=== PATIENT | male | born 1985 | race Caucasian/White ===

== ENCOUNTER → 2018-05-14 09:03 | Outpatient (CLI) | payer OTHER, SELFPAY ==
[2018-05-14 09:46] LABS: Color, Urine Yellow (Yellow); Glucose, Dipstick Normal (Normal); Ketone-Dipstick Negative (Negative); Leukocyte Esterase-Dipstick Negative /ul (Negative); Nitrite-Dipstick Negative (Negative); Occult Blood-Urine Negative /ul (Negative); Protein-Dipstick Negative (Negative); Specific Gravity, Urine 1.015 (1.002-1.030); Urine Bilirubin Dipstick Negative (Negative); Urine Clarity Clear (Clear); Urine Urobilinogen Normal (Normal); Urine pH 6.5 (5.0 - 8.0)
[2018-05-14 09:52] LABS: Absolute Lymphocyte Count 1.41 X10^3/ul (0.83-4.51); Absolute Neutrophil Count 2.1 X10^3/uL (2.0-7.7); Basophil# 0.01 X10^3/uL; Basophil% 0.3 % (0-1); Eosinophil# 0.06 X10^3/uL; Eosinophils% 1.5 % (0-5); Hematocrit 45.8 % (40-54); Hemoglobin 15.5 g/dl (13.0-16.5); Lymphocyte # 1.41 X10^3/ul (4.0); Lymphocyte % 36.2 % (19-41); Mean Corp Hgb Conc 33.8 g/gl (32-36); Mean Corpuscular Hgb 29.5 pg (27.0-32.0); Mean Corpuscular Volume 87.1 fL (80-94); Mean Platelet Vol. 10.7 fl (6.2-12.0); Monocyte# 0.35 X10^3/uL; Neutrophil # 2.06 X10^3/uL (2.7-7.7); Neutrophil % 52.7 % (47-70); POSITIVE COUNT NO; POSITIVE DIFFERENTIAL NO; POSITIVE MORPHOLOGY NO; Platelet Count 156 K/mm3 (150-450); RBC Distribution Width CV 13.2 % (11.6-14.6); RBC Distribution Width SD 41.9 fl (35.1-43.9); Red Blood Count 5.26 M/mm3 (4.6-6.2); White Blood Count 3.9 K/mm3 (4.4-11.0)
[2018-05-14 10:20] LABS: BUN 16 mg/dL (7-18); Creatinine, Serum 0.84 mg/dL (0.70-1.30); Glucose 90 mg/dL (74-106)
[2018-05-14 10:21] LABS: ALB/GLOB Ratio 1.6 RATIO (0.9-2.4); AST(SGOT) 21 U/L (15-37); Alanine Aminotransfer ALT/SGPT 57 U/L (16-61); Albumin, Serum 4.3 g/dL (3.2-5.0); Alkaline Phosphatase 105 U/L (45-117); Anion Gap 5 (5-15); Calcium,Total 8.8 mg/dL (8.5-10.1); Chloride 107 mmol/L (98-107); Cholesterol 172 mg/dL (200); EST Glomerular Filtration Rate 113 mL/min (>60); Est Glom Filt Rate - Afr Amer 136 mL/min (>60); Globulin 2.7 g/dL (2.2-4.2); High Density Lipoprotein 47 mg/dL; Potassium 3.9 mmol/L (3.5-5.1); Sodium Level 139 mmol/L (136-145); Triglycerides 88 mg/dL; Very Low Density Lipoprotein 18 mg/dL (5-40)
--- OUTSIDE RECORDS SUMMARY | 2018-07-18 16:03 | XMS RPT_ITS ---
:1985 Author Organization OHIP Care Team Providers Name Role Phone CHRISTINA LOZADA Attending Unavailable CHRISTINA LOZADA Attending Unavailable CHRISTINA LOZADA Attending Unavailable Tommy John Attending Unavailable Tommy John Referring Unavailable Tommy John Primary Care Unavailable PROBLEMS PROBLEMS No Problem Records FoundPROCEDURES PROCEDURES No Procedure Records FoundRESULTS RESULTS URINALYSIS, ROUTINE Collected: 05/14/2018 Status: F Source: [place] ([place]) 9:[address] [facility] REPOSITORY Order Comment: How was Urine Obtained? CLEAN CATCH TYPE CODE TESTS RESULT OUT OF RANGE REFERENCE UNITS LAB L400.3000 Yellow COLOR Normal Yellow LAB L400.3050 Clear Normal CLARITY Clear LAB L400.3200 Normal mg/dl Normal GLUCOSE, UR Normal LAB L400.3300 Negative mg/dL Normal BILIRUBIN URINE Negative LAB L400.3400 Negative mg/dl Normal KETONE UR Negative LAB L400.3465 1.002-1.030 Normal SP.GR. DIPSTX 1.015 LAB L400.3550 5.0 - 8.0 pH UR Normal 6.5 LAB L400.3600 Negative mg/dl PROT Normal DIPSTX Negative LAB L400.3700 Normal mg/dl Normal UROBILI Normal LAB L400.3750 Negative Normal NITRITE UR Negative LAB L400.3780 Negative /ul Normal OCCULT BLOOD-UR Negative LAB L400.3800 Negative /ul LEUK Normal ESTERASE Negative Performed By: #### L400.2010 #### [facility] [address] [place], [address] CBC W/DIFF, AUTOMATED Collected: 05/14/2018 Status: F Source: [place] 9:[address] [facility] REPOSITORY TYPE CODE TESTS RESULT OUT OF RANGE REFERENCE UNITS LAB L100.1000 4.4-11.0 K/mm3 Low WBC 3.9 LAB L100.1200 4.6-6.2 M/mm3 Normal RBC 5.26 LAB L100.1300 13.0-16.5 g/dl Normal HGB 15.5 LAB L100.1400 40-54 % Normal HCT 45.8 LAB L100.1500 80-94 fL Normal MCV 87.1 LAB L100.1600 27.0-32.0 pg Normal MCH 29.5 LAB L100.1700 32-36 g/gl Normal MCHC 33.8 LAB L100.1810 11.6-14.6 % Normal RDW CV 13.2 LAB L100.1820 35.1-43.9 fl Normal RDW SD 41.9 LAB L100.1900 150-450 K/mm3 Normal PLT 156 LAB L100.2000 6.2-12.0 fl Normal MPV 10.7 LAB L100.2100 47-70 % Normal NEUT% 52.7 LAB L100.2200 19-41 % Normal LY% 36.2 LAB L100.2300 0-10 % Normal MONO% 9.0 LAB L100.2400 0-5 % Normal EO% 1.5 LAB L100.2500 0-1 % Normal BASO% 0.3 LAB L100.2550 0.0-0.9 % Normal IM GRAN % 0.300 Result Comment: IG% - Immature Granulocytes (promyelocytes, myelocytes and metamyelocytes) > 1% indicates that a LEFT SHIFT is Present. LAB L100.2620 2.0-7.7 X10 3/uL Normal Absolute Neut 2.1 LAB L100.2720 0.83-4.51 X10 3/ul Normal Absolute Lymph 1.41 Performed By: #### L100.0100 #### [facility] [address] [place], [address] COMPREHENSIVE METABOLIC Collected: 05/14/2018 Status: F Source: [place] [facility] 9:[address] [facility] REPOSITORY TYPE CODE TESTS RESULT OUT OF RANGE REFERENCE UNITS LAB L501.0100 74-106 mg/dL Normal GLU 90 Result Comment: Please note revised GLUCOSE reference range effective 2017. LAB L501.1000 7-18 mg/dL Normal BUN 16 LAB L501.1100 0.70-1.30 mg/dL Normal CREAT,SERUM 0.84 Result Comment: The validity of the calculated GFR AND GFRAA in patients over 70 years has not been determined. Clinical correlation is essential. LAB L501.1110 >60 mL/min Normal EST GFR 113 Result Comment: Non- GFR Calc LAB L501.1115 >60 mL/min Normal EST GFR - AA 136 Result Comment: GFR Calc LAB L501.1300 10-20 RATIO Normal BUN/CRE 19.0 LAB L501.1500 6.4-8.2 g/dL T Normal PROT 7.0 LAB L501.1800 3.2-5.0 g/dL Normal ALB 4.3 LAB L501.1950 2.2-4.2 g/dL Normal GLOB 2.7 LAB L501.2000 0.9-2.4 RATIO Normal A/G 1.6 LAB L501.2200 8.5-10.1 mg/dL CA Normal 8.8 LAB L501.4100 15-37 U/L Normal AST 21 LAB L501.4305 45-117 U/L Normal ALK P 105 LAB L501.4405 16-61 U/L Normal ALT 57 LAB L501.4600 0.20-1.00 mg/dL T Normal BILI 0.50 LAB L501.5300 136-145 mmol/L NA Normal 139 LAB L501.5600 3.5-5.1 mmol/L K Normal 3.9 LAB L501.5900 98-107 mmol/L CL Normal 107 LAB L501.6100 21.0-32.0 mmol/L Normal CO2 27.0 LAB L501.6200 5-15 Normal GAP 5 Performed By: #### L500.4050, L500.4100 #### [facility] [address] [place], [address] LIPID PROFILE Collected: 05/14/2018 Status: F Source: [place] 9:[address] [facility] REPOSITORY TYPE CODE TESTS RESULT OUT OF RANGE REFERENCE UNITS LAB L501.4900 200 mg/dL Normal CHOL 172 Result Comment: <200 mg/dL Desirable 200-240 mg/dL Borderline >240 mg/dL High Risk LAB L501.5000 mg/dL Normal TRIG 88 Result Comment: The drugs N-Acetylcysteine and Metamizole may falsely depress this assay. Serum Triglycerides Reference Interval Normal <150 mg/dL Borderline high 150 - 199 mg/dL High 200 - 499 mg/dL Very High > or = 500 mg/dL LAB L501.6400 mg/dL Normal HDL 47 Result Comment: The drugs N-Acetylcysteine and Metamizole may falsely depress this assay. Reference Range HDL <40 mg/dL Low HDL Cholesterol HDL >or= 60 mg/dL High HDL Cholesterol LAB L501.6500 0-130 mg/dL Normal LDL 107 LAB L501.6600 5-40 mg/dL Normal VLDL 18 Performed By: #### L500.4050, L500.4100 #### [facility] [address] [place], [address] PHENYTOIN (DILANTIN) Collected: 05/14/2018 Status: F Source: [facility] 9:[address] [facility] REPOSITORY Order Comment: Time Medication is to be Given? 0800 TYPE CODE TESTS RESULT OUT OF REFERENCE UNITS RANGE LAB L501.7700 10.0-20.0 mL High alert PHENYTOIN 36.0 Result Comment: Critical Result(s) Called to TBee at: 10:25:59 05/14/2018 by: CCrytzer Phenytoin concentrations greater than 30.0 ug/mL are potentially toxic. Performed By: #### L501.7700 #### [facility] [address] [place], [address] PROGRESS Observed: 08/19/2017 Status: COMPLETED Source: [place] 12:17 PM [facility] REPOSITORY HNO ID: [id number] Author: Christina Lozada Service: (none) Author Type: Psychologist Type: Progress Notes Filed: 08/19/2017 12:26 PM Note Text: [facility] Progress Note Ileana Hernandez 08/19/2017 [id number] Provider: Christina Lozada, PHD CPT Code: 66551 Psychotherapy 38-52 minutes Time: Approximately 50 minutes was spent in therapy. Parties Present: Patient Patient Presentation/Concerns: Pt getting in a few months.... discussed the 20K as difficult but ok Pt working on challenging his typical response of Withdrawing vs having a voice HX: grandfather would ask him to do things but might get frustrated and just do it himself.. OUTCOME: pt learned to w/draw vs feel bad about himself concerns his son with autism will have a good life PLAN: live well now and see that his work matches son's interests and skills fiafshin tends to be easily agitated .. PLAN: wonder about OTC to help Mental Status: Mood: variable Affect: mood-congruent Thoughts/Associations:goal directed Suicidal/Homicidal Ideation: None expressed or evidenced Other Observations: None Therapy Focus Self-care, Stress management, Mood/affect regulation, Interpersonal, Family relationships, Marital/couple, Parenting and Self-esteem MEDICATIONS: Per medical record: No current outpatient prescriptions on file. No current facility-administered medications for this visit. Psychiatric Medication Issues: Dilantin for prophylactic for myoclonic seizures seems best DIAGNOSIS: Crane I: Adjustment Disorder, mixed Relationship Problem Myoclonic Seizures ?? Crane II: deferred Crane III: see med record Crane IV: ?struggle w having a voice and intimacy Crane V: ?53 Treatment Modality/Interventions: Cognitive Behavioral Reassurance/Supportive Insight oriented Problem solving TREATMENT ASSESSMENT/PROGRESS: . Progressing satisfactorily. TREATMENT PLAN/GOALS: Continue in therapy focusing on self-care, assertiveness skills and self-esteem. Next appointment: as scheduled Christina Lozada PHD PROGRESS Observed: 08/05/2017 Status: COMPLETED Source: [place] 12:00 PM [facility] REPOSITORY O ID: [id number] Author: Christina Lozada Service: (none) Author Type: Psychologist Type: Progress Notes Filed: 08/05/2017 12:07 PM Note Text: [facility] Progress Note Ileana Dubois David 08/05/2017 [id number] Provider: Christina Lozada, PHD CPT Code: 74756 Psychotherapy 38-52 minutes Time: Approximately 50 minutes was spent in therapy. Parties Present: Patient Patient Presentation/Concerns: Pt does ok w danica daughter and more difficult but ok w his autistic son and at work ... particularly helping and teaching... his job at work is it trainer / teacher at [employer] discussed his fear of conflict: doesnt want to feel diminished PLAN: worked on I-Messages... and 'i wonder what i say or do that leads you to feel diminished..' to fiance and notice no 'ill intent' on his part in spite of that view from others and Primacy Worked also on 'protective emotional shell' Mental Status: Mood: variable Affect: mood-congruent Thoughts/Associations:goal directed Suicidal/Homicidal Ideation: None expressed or evidenced Other Observations: None Therapy Focus Self-care, Mood/affect regulation, Interpersonal, Marital/couple, Parenting and Self-esteem MEDICATIONS: Per medical record: No current outpatient prescriptions on file. No current facility-administered medications for this visit. Psychiatric Medication Issues: No change from previous appointment DIAGNOSIS: Crane I: Adjustment Disorder, mixed Relationship Problem ? Crane II: deferred Crane III: see med record Crane IV: struggle w having a voice and intimacy Crane V: 53 Treatment Modality/Interventions: Cognitive Behavioral Reassurance/Supportive Insight oriented Problem solving Communication skills training TREATMENT ASSESSMENT/PROGRESS: . Progressing satisfactorily. TREATMENT PLAN/GOALS: Continue in therapy focusing on self-care, interpersonal relationships, improving communication, assertiveness skills and affect management. Next appointment: as scheduled Christina Lozada PHD PROGRESS Observed: 07/13/2017 Status: COMPLETED Source: [place] 5:29 PM [facility] [place] REPOSITORY [facility] ID: [id number] Author: Christina Lozada Service: (none) Author Type: Psychologist Type: Progress Notes Filed: 07/13/2017 5:52 PM Note Text: [facility] Progress Note Ileana Dubois David 07/13/2017 [id number] Provider: Christina Lozada PHD CPT Code: 57164 Psychiatric diagnostic evaluation Time: Approximately 50 minutes was spent in therapy. Parties Present: Patient Patient Presentation/Concerns: INITIAL VISIT Born in [place] and raised by grandmother and step grandfather.... very close to grandmother... bio father joined them when pt was 16 but wanted to direct him w/o earning the right father was druggy and mom in and out of intermediate Pt went to [place] but drank daily so returned He has an autistic son residing w the boys mom and now 7 yo... he has him about every other wknd Pt lives w Malgorzata and her 8 yo daughter, a nurse, and they plan to in December... pt was dx as ADHD as child and now on Strattera which seems to be helping Issue; he has difficulty initiating personal conversations since he fears being demeaned or not listened to PLAN: worked on Dialogue vs Monologue technique and from Content thru intimate conversation to Getting how the other could think that way as content becomes less important Goal: learn how to have a voice ... and find a way to have son reside w him if he can Mental Status: Mood: variable, anxious Affect: mood-congruent Thoughts/Associations:goal directed Suicidal/Homicidal Ideation: None expressed or evidenced Other Observations: None Therapy Focus Self-care, Stress management, Mood/affect regulation, Marital/couple, Parenting and Self-esteem MEDICATIONS: Per medical record: No current outpatient prescriptions on file. No current facility-administered medications for this visit. Psychiatric Medication Issues: see med record DIAGNOSIS: Crane I: Adjustment Disorder, mixed Relationship Problem Crane II: deferred Crane III: see med record Crane IV: struggle w having a voice and intimacy Crane V: 53 Treatment Modality/Interventions: Cognitive Behavioral Reassurance/Supportive Problem solving Communication skills training TREATMENT ASSESSMENT/PROGRESS: . Fluctuating progress. TREATMENT PLAN/GOALS: Continue in therapy focusing on interpersonal relationships, improving communication, affect management and self-esteem. Next appointment: as scheduled Christina Lozada, PHD ALLERGIES ALLERGIES DATE TYPE / CODE NAME / CODE REACTION SEVERITY SOURCE 02/19/2005 DRUG BANANA [facility] INGREDI/[id number]( [place] [facility]) Repository 02/19/2005 DRUG BUTTER [facility] INGREDI/[id number](S FLAVOR [facility] [place] [facility]) Repository 02/19/2005 Miscellaneous OTHER [facility] Allergy/[id number]( [place] [facility]) Repository 02/19/2005 DRUG EGG [facility] INGREDI/[id number](S [facility] [place] [facility]) Repository 02/19/2005 Environ/[id number](S LATEX [facility] NOMED CT) [place] Repository 02/19/2005 DRUG NICKEL [facility] INGREDI/[id number]( [place] [facility]) Repository ENCOUNTERS ENCOUNTERS ADMIT/DISCHARGE ACCOUNT ADMITTING ENCOUNTER LOCATION SOURCE NUMBER CLASS 05/14/2018 [id number] Ambulatory [facility] ing:LAB Repository 08/19/2017/08/21/19 [id number] Ambulatory [address] Repository 08/05/2017/08/07/19 [id number] Ambulatory [address] Repository 07/13/2017/07/15/19 [id number] Ambulatory [address] Repository PAYERS PAYERS ENCOUNTER GUARANTOR PAYER SUBSCRIBER SOURCE 05/14/2018 ILEANA Dubois Primary ILEANA Pride Insurance:MEDICAL BRENNERDOB: [facility] [id number] Number: Repository [id number]: [phone] [id number] [phone] () Date:[id number] [address] [address]EE: 05/14/2018 Secondary NOT GIVENMARGUERITE Rod Insurance:SELF PAY [facility] Number: Effective Repository Date:2018-05-14
== END ==
PROVIDERS: Family Provider Family Medicine; PCP Family Medicine; Referring Provider Family Medicine; Visit Provider Family Medicine
DX: Z00.00 Encounter for general adult medical examination without abnormal findings (principal); Z51.81 Encounter for therapeutic drug level monitoring
CPT/HCPCS: 36415; 80053; 80061; 80185; 81002; 85025

== ENCOUNTER → 2020-12-15 08:49 | Outpatient (CLI) | payer MEDICAID, SELFPAY ==
[2020-12-15 10:05] LABS: Phenytoin (Dilantin) Level 13.3 mL (10.0-20.0)
== END ==
PROVIDERS: PCP Family Medicine; Visit Provider Family Medicine
DX: Z51.81 Encounter for therapeutic drug level monitoring (principal)
CPT/HCPCS: 36415; 80185

== ENCOUNTER 2021-01-26 18:56 | Emergency (ER) | payer MEDICAID, SELFPAY ==
[2021-01-26 18:57] VITALS: BP 188/128; PULSE 101; RESP 16; TEMP 35.8; O2SAT 98; BMI 29.0
--- NOTE | 2021-01-26 20:00 | EDS_ITS ---
HPI HPI - Psych History of Present Illness Chief Complaint: Mental Health Detail of Chief Complaint: I am going through a manic episode Informant: patient Onset/Context/Timing Onset: Weeks Conflict: Family, Work and Financial Timing: Continuous and Waxes and wanes Current Severity: Moderate Maximum Severity: Severe Worsened by: Situational factors Relieved by: Nothing Associated Symptoms Associated Symptoms - Psych: Positive for Depressed, Change in Eating, Change in sleeping, Decreased Interest and Decreased Concentration; Negative for Guilt, Hopelessness, Suicidal Thoughts, Easily distracted, Grandiosity, Flight of Ideas, Increased activity, Pressured Speech, Agitated, Angry, Hostile, Threatening, Confusion, Paranoia, Visual Hallucinations and Auditory Hallucinations Specific plan (suicidal thought): None Narrative Narrative: Patient has history of bipolar affective disorder. He is present Paxil. He has a scheduled appointment at the crisis center for February 06. He states there are problems with his marriage. He would never harm himself since he has 2 preteen's an 98-xrils-dns. He is employed and does have insurance. He denies drug use. He does admit to smoking. There is been no reckless behavior. There is been no frivolous pending. There is no sense of grandiosity or of being omnipotence. Patient has symptoms of depression and sadness. He states things are falling apart around him. He is concerned his is going to leave him. Prior similar symptoms: Yes Recent Illness/Hospitalization: No (Last hospitalization was 10 years ago) [facility] Medical History Bipolar disorder Epilepsy Narcolepsy Home Medications armodafinil [Nuvigil] 250 mg PO DAILY 01/26/21 [History Last Taken 01/26/21] atomoxetine [Strattera] 80 mg PO DAILY 01/26/21 [History Last Taken 01/26/21] escitalopram oxalate [Lexapro] 10 mg PO DAILY #30 tab 01/26/21 [Rx Last Taken Unknown] multivitamin 1 tab PO DAILY 01/26/21 [History Last Taken 01/26/21] nicotine 1 patch TRANSDERMAL Q24H #28 ea 01/26/21 [Rx Last Taken Unknown] paroxetine HCl 30 mg PO DAILY 01/26/21 [History Last Taken 01/26/21] phenytoin sodium extended [Dilantin Extended] 100 mg PO TID 01/26/21 [History Last Taken 01/26/21 08:00] Allergy/AdvReac Type Severity Reaction Status Date / Time No Known Allergies Allergy Verified 01/26/21 19:00 Surgical History Hx of tonsillectomy Social History (Updated 01/26/21 @ 20:[address] Oswaldo Stevens MD) household members: spouse and children Smoking Status: Current every day smoker tobacco type: cigarettes alcohol intake: current alcohol intake frequency: other substance use type: does not use ROS ROS ED Constitutional Constitutional ED: Denies chills, fever(s), subjective or sweats Eyes Eyes: Denies blurry vision or change in vision ENT ENT ED: Denies ear pain, rhinorrhea or sore throat Cardiovascular Cardiovascular: Denies chest pain or palpitations Respiratory/Chest Respiratory/Chest: Denies cough, dyspnea or dyspnea on exertion Gastrointestinal Gastrointestinal: Denies abdominal pain, constipation, diarrhea, nausea or vomiting Musculoskeletal Musculoskeletal: Denies arthralgias, back pain, myalgias or neck pain Integumentary Denies Abrasions or rash Neurologic Neurologic: Denies paresthesias or weakness Psychiatric Psychiatric: Reports anxiety and depression; Denies suicidal ideation or suicid al thoughts Hematologic/Lymphatic Hematologic/Lymphatic: Denies easy bleeding or easy bruising EXAM Physical Exam Const Vital Signs: 01/26/21 18:57 Temperature 96.5 F L Temperature Source Temporal Pulse Rate 101 H Respiratory Rate 16 Blood Pressure 188/128 H Blood Pressure Mean 148 Pulse Ox 98 Oxygen Delivery Method Room Air Positive well nourished and well developed General Appearance ED: well developed and NAD; Negative for pallor HEENT normocephalic and atraumatic Eyes PERRL and EOMs intact bilaterally General Eye ED: Negative for pale conjunctiva or scleral icterus Neck no lymphadenopathy, supple and no JVD Resp normal respiratory effort and clear to auscultation bilaterally Cardio S1 normal heart sound, S2 normal heart sound and no murmurs Rate: regular rate Rhythm: regular rhythm Back/Spine no CVA tenderness Extremity normal to inspection General Extremety ED: Negative for edema or tenderness General Extremity: Negative for edema Neuro oriented x3, CN's II-XII intact bilaterally and no sensory deficits noted Sensorium / Orientation: alert Psych mental status grossly normal and thought process normal Appearance: grossly normal and appropriate Activity / Motor Behavior: appropriate eye contact Mood & Affect: depressed Attention / Concentration: attention grossly intact and concentration grossly intact Memory / Cognition: memory grossly intact Insight: fair Judgement: fair Skin General Skin Exam: Negative for jaundice or pallor Lesions: no lesions Rashes: no rashes MDM MDM MDM Narrative Medical decision making narrative: Patient's symptoms are consistent with depression. Spoke with case management to expedite outpatient appointment and will prescribe antidepressant. Case management did speak with him. Plan is prescription for nicotine patch, Lexapro and emergent intensive outpatient therapy Discharge Plan Triage Chief Complaint: Mental Health ED Provider: Oswaldo Stevens Dx/Rx/DC Orders Clinical Impression: Depression Instructions: ED Depression Prescriptions: New nicotine 21 mg/24 hr patch 24 hour 1 patch transdermal Q24H Qty: 28 RF: 0 escitalopram oxalate [Lexapro] 10 mg tablet 10 mg PO DAILY Qty: 30 RF: 0 No Action multivitamin Tablet 1 tab PO DAILY RF: 0 phenytoin sodium extended [Dilantin Extended] 100 mg Capsule 100 mg PO TID RF: 0 paroxetine HCl 30 mg tablet 30 mg PO DAILY RF: 0 atomoxetine [Strattera] 80 mg Capsule 80 mg PO DAILY RF: 0 armodafinil [Nuvigil] 50 mg tablet 250 mg PO DAILY RF: 0 Primary Care Provider: Tommy John Referrals: Tommy John MD [Primary Care Provider] - As Needed Disposition Disposition: Home, Self Care
[2021-01-26 21:13] VITALS: BP 177/102; PULSE 92; RESP 15; O2SAT 98
--- NOTE | 2021-01-26 21:18 | CM.ED ---
Addendum entered by Lise Reilly 01/26/21 21:44: MARCIA sent referral to [facility] IOP/PHP Lincoln Reilly Original Note: MARCIA Note Referral Source: MD Referral Reason: MD requested earlier appointment than patient's scheduled [facility] and to see what Meds patient had been on in the past that worked so he can resume meds. SW spoke to Reina from Crisis and she confirmed patient had appointment on 02/06 with Arbil, a therapist, and she can not change that appointment. She indicated patient may benefit from [facility] IOP/PHP. Chief Complaint: Patient said that he feels I am in a extended manic episode.. I make crappy decision and I can't understand why I do it... my behavior is not acceptable with a 11 month old, 10 year old and 11 year. SW asked what patient meant by crappy decisions and he said there is Adderall in the cupboard that was prescribed but hasn't been used and I went through a couple 1,000 mg in a couple of months. Patient said that he has not used adderal in 1 1/2- 2 weeks. Patient said that he also had been taking Ritalin, which was prescribed to him. Patient reports he has some degree of hypersexuality but never found a partner I just kept it to myself. Patient said when my and I fight the most absurd statements come out of my mouth. Marital/Social Status: . Patient and his have 11 month old together, patient's son age 10 and his 's daughter age 11. Living Situation: Patient resides in a house with his and 3 children. Patient has custody of his son. Support/Resource: Patient was asked about his support and he said Madi Lozada and Humza Corley. SW asked patient about drinking and he said not often. Patient said that he was taking pills and going through pills. History: None. Patient reports history of epilepsy Education and Employment: Patient graduated from [employer]. He reports having an IEP related to his ADHD. Patient is not employed. Patient said that he took Seroquel in the past and I slept for 13 hours and then I got up and had a bad seizures. Patient reports he could not recall the names of the other medications he was on in the past. Patient said that he is currently on Paxil as he wanted to quit smoking but does not think it is helpful. Mental Health Treatment: Patient reports he has a [facility]. Patient said that he was last psychiatrically hospitalized 10 years ago and at an unknown facility. Patient said I used to be a cutter but denied current cutting. Patient reports... my goal.. I don't know.. I don't want to lose my and kids. Patient said that previously he has been diagnosed with bipolar but his suspects he has ASD (Autism Spectrum Disorder) as his son and other family members have it. 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 Last use 2 weeks ago. Risk to Self and Others SI: Patient reports no current SI. Patients past SI but I don't want to do anything to lose or be away from my kids and showed this law writer a picture of his daughter. Patient said that on a scale of 1-10 with 1 being low and 10 being high his intent is a 1. Patient denied current plan. Patient said that he attempted to hang himself approximately 15 years ago. Homicidal: Patient said not really and when this law writer asked about his response he said there I times I get really upset and have to separate myself.. but all I want to do is Bitch Slap. Violence: Patient denies cutting or self abusive behavior. Patient denies violence to objects or others. SW asked what patient's goal is today and he said I want help and when asked what help he feels he needs he said I would like a psychologist and I do need Meds. Patient said I don't know what the root problem is ... so it is hard to have a goal. SW asked patient to complete a safety plan and that law writer would follow up with him on Thursday. SW gave him the safety plan to complete and said law writer would be back shortly. However, when SW went back to get safety plan he had been discharged and left. However, when completing safety plan patient denied weapons such as guns in the house. sW told patient that if he is in crisis he can call [facility]. Patient said that he has the number for crisis as they have had to use it for my son. SW asked patient if he felt he would be safe being discharge and he said yeah I will be fine. SW spoke to both RN and MD and they stated patient denied any current SI, which is consistent with this writers interview. Mental Status Exam: Orientation: x4 Memory: Good Appearance: Clean/appropriate Mood/Affect: Depressed mood and affect Communication Patterns: Responds to Questions Thought Process: Appropriate. No evidence of AH/VH General Intellectual Functioning: Average Judgement: Fair Insight:Good SW reviewed with patient the [facility] IOP/PHP. SW explained the program including groups, individual counseling and med management. Patient said I will do anything. SW explained the time commitment and that it involves groups and patient said I will do anything. Patient denied current SI/HI and denied any intent to harm self. Patient showed this law writer picture of his daughter and said that he doesn't want to do anything to lose or be away from her. SW gave patient a handout on [facility] IOP/PHP. SW had patient complete a safety plan and SW will follow up with patient on Thursday. SW encouraged patient to take prescribed Meds and that they do not have optimum effectiveness till 21 days. Patient was advised to not take any more Adderall. Patient verbalized understanding. Plan: Patient completed safety plan however he left without this law writer getting it. SW will call patient on Thursday. SW will refer patient to IOP/PHP at [facility]. Lise HANSEN
--- NOTE | 2021-01-26 22:39 | CM.ED ---
SW spoke to RN caring for the patient. She said that while she was in another patient's room the patient was discharged by another nurse. RN, caring for the patient, did not discharge patient as another RN discharged him. Plan: Home with safety plan and follow up with [facility] Lise HANSEN
--- NOTE | 2021-01-28 11:09 | CM.ED ---
SW Note MARCIA left voice mail message for patient advising that [facility] IOP/PHP will reach out to him today. MARCIA requested a call back. Plan: IOP/PHP Lise HANSEN
--- NOTE | 2021-01-28 21:19 | CM.ED ---
MARCIA followed up with phone call to patient's voice mail at 4:23pm on this date. SW left voice mail with call back. Lise HANSEN
== END 2021-01-26 21:37 | disposition home or self-care (01) ==
PROVIDERS: Emergency Provider Emergency Medicine; PCP Family Medicine
DX: F32.9 Major depressive disorder, single episode, unspecified (principal); F17.210 Nicotine dependence, cigarettes, uncomplicated; G40.909 Epilepsy, unspecified, not intractable, without status epilepticus; G47.419 Narcolepsy without cataplexy
CPT/HCPCS: 99282

== ENCOUNTER 2021-02-24 20:41 | Emergency (ER) | payer MEDICAID, SELFPAY ==
[2021-02-24 20:43] VITALS: BP 159/99; PULSE 101; RESP 16; TEMP 36.4; O2SAT 98; BMI 29.7
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
[2021-02-24 21:23] LABS: Amphetamine Urine VISTA NEGATIVE (<1000 ng/mL); Barbiturate Urine VISTA NEGATIVE (< 200 ng/mL); Benzodiazepine Urine VISTA NEGATIVE (< 200 ng/mL); Cocaine Urine VISTA NEGATIVE (< 300 ng/mL); Ecstacy Urine VISTA NEGATIVE (< 500 ng/mL); Methadone Urine VISTA NEGATIVE (< 300 ng/mL); PCP Urine VISTA NEGATIVE (< 25 ng/mL); THC Urine VISTA NEGATIVE (< 50 ng/mL); Vista UDS pH Range 6
[2021-02-24 21:56] LABS: Absolute Lymphocyte Count 2.39 X10^3/uL (0.83-4.51); Absolute Neutrophil Count 3.4 X10^3/uL (2.0-7.7); Basophil# 0.03 X10^3/uL; Basophil% 0.5 % (0-1); Eosinophil# 0.15 X10^3/uL; Eosinophils% 2.3 % (0-5); Hematocrit 46.3 % (40-54); Hemoglobin 16.2 g/dL (13.0-16.5); Lymphocyte # 2.39 X10^3/ul (0.83-4.51); Lymphocyte % 37.1 % (19-41); Mean Corpuscular Hgb 30.3 pg (27.0-32.0); Mean Corpuscular Volume 86.5 fL (80-94); Mean Platelet Vol. 10.4 fl (6.2-12.0); Monocyte# 0.44 X10^3/uL; Monocyte% 6.8 % (0-10); NRBC Flagged by Analyzer 0 % (0-5); Neutrophil # 3.42 X10^3/uL (2.7-7.7); Platelet Count 191 K/mm3 (150-450); RBC Distribution Width CV 13.1 % (11.6-14.6); RBC Distribution Width SD 40.6 fl (35.1-43.9); Red Blood Count 5.35 M/mm3 (4.6-6.2); White Blood Count 6.5 K/mm3 (4.4-11.0)
[2021-02-24 22:03] VITALS: RESP 17
[2021-02-24 22:14] LABS: Anion Gap 7 (5-15); BUN 14 mg/dL (7-18); BUN/Creat Ratio 14.7 RATIO (10-20); Calcium,Total 9.3 mg/dL (8.5-10.1); Chloride 106 mmol/L (98-107); Creatinine, Serum 0.95 mg/dL (0.70-1.30); EST Glomerular Filtration Rate 96 mL/min (>60); Est Glom Filt Rate - Afr Amer 116 mL/min (>60); Estimated Creatinine Clearance 123.82 ml/min; Glucose 100 mg/dL (74-106); Potassium 3.5 mmol/L (3.5-5.1); Sodium Level 140 mmol/L (136-145)
[2021-02-24 22:31] LABS: Phenytoin (Dilantin) Level 1.8 mL (10.0-20.0)
--- NOTE | 2021-02-24 22:35 | NURSING ---
CALLED CRISIS AT [id number]
[2021-02-25 00:31] VITALS: BP 137/93; PULSE 79; RESP 18; O2SAT 97
[2021-02-25 02:22] VITALS: RESP 16
--- NOTE | 2021-02-25 03:10 | NURSING ---
pt given belongings back. 2 plastic hospital bags and a duffle bag that was brought in by the patients. sitter at bedside.
== END 2021-02-25 04:17 | disposition home or self-care (01) ==
PROVIDERS: Student in an Organized Health Care Education/Training Program; Emergency Provider Emergency Medicine; PCP Family Medicine
DX: R45.851 Suicidal ideations (principal); F17.210 Nicotine dependence, cigarettes, uncomplicated; G47.419 Narcolepsy without cataplexy; G40.909 Epilepsy, unspecified, not intractable, without status epilepticus; F31.9 Bipolar disorder, unspecified
CPT/HCPCS: 80048; 80185; 80307; 82077; 85025; 87426; 99285

== ENCOUNTER 2021-03-05 09:36 | Outpatient (RCR) | payer MEDICAID, SELFPAY ==
--- NOTE | 2021-03-05 09:04 | BH.SGPN.GN ---
Behaviors/Verbalizations/Mental Status: []Client alert and oriented, casually dressed and groomed. Eye contact fair to good. Motor activity appropriate. Speech within normal limits. Affect congruent, mood depressed and anxious. Thoughts linear, logical, no signs of hallucinations or delusions. Reviewed client?s symptom tracker, no risk for suicidal ideation, plan, or intent as of 03/05/21. Client Response/Progress/Benefit: []Client first day in IOP tx. He did well to remain attentive and was willing to process with group. Client reports feeling ?I am the personification of a hot mess. Went on to discuss several psychosocial stressors and unhealthy decisions making which resulted in seeking IOP tx. Discussed struggling with sobriety, depression, and impulsivity. Shared beginning to recognize he had been blaming others for his problems and avoided taking personal responsibility but would like to start doing so now. Shared wanting to set a good example for his children and make strides in improving his marriage as well. Client appeared to benefit from supportive group environment. Will continue IOP tx to improve mood stability, develop healthy means of coping, and prevent decompensation. Narrative Note: []
--- NOTE | 2021-03-05 09:40 | BH.COMM ---
Communication Note - Communication with Client Communication Note: Met with pt to completed initial paperwork. Since pre-admission screening he presented to the [facility] ER on 02/24/21 for SI with thoughts of methods. Assessed by crisis and discharged. [facility] is [facility] with [facility]. Sober from Meth for several weeks and continues to report erratic mood and fleeting SI. He disclosed a hx of 10 previous suicide attempts during [facility] however reports the most of those were due to self-injurious behaviors and not suicidal. He is a poor historian and has difficulty parceling though these events. Last suicide attempt was in 2010. Does not present as imminent danger to himself. Motivated. Protective factors. Future-oriented. Talked at length regarding employment opportunities.
--- NOTE | 2021-03-05 10:12 | BH.SGPN.GN ---
Behaviors/Verbalizations/Mental Status: []Client alert and oriented, casually dressed and groomed. Eye contact good. Motor activity appropriate. Speech within normal limits. Affect congruent, mood depressed. Thoughts linear, logical, no signs of hallucinations or delusions. Client Response/Progress/Benefit: []Pt was an active participant in group discussion and activity. Attentive during psychoeducation on coping skills. Pt along with peers worked together to identify unhealthy coping skills such as; avoidance, substance use, and trying to take care of issues alone. Group was able to identify why people use unhealthy coping skills such as; easy, comfortable, work in the short-term, habit, or it?s what they were taught/learned from others. Pt noted he struggles with implementing healthy coping skills, even though he knows what he should do. Pt also noted he wants to use healthier coping skills to be a role model for his children. Benefited from increased understanding of unhealthy coping skills and the need for developing healthy internal coping skills to manage mental health sx. Pt will continue in IOP to prevent decompensation, gain healthy coping skills, and improve functioning. Narrative Note: []
--- NOTE | 2021-03-05 11:12 | BH.SGPN.GN ---
]Behaviors/Verbalizations/Mental Status: []Client alert and oriented, casual dress, hygiene tended to. Eye contact good. Motor activity appropriate. Speech within normal limits. Affect congruent, mood anxious. Thoughts linear, logical, no signs of hallucinations or delusions. Client Response/Progress/Benefit: []Client responded well to session, actively listening and providing examples. Client stated he doesn't have any healthy coping skills. Client reported he needs to gain both healthy internal and external skills. Group discussed the different categories of coping skills which included distraction, emotional release, grounding, self-love, and thought challenging. Client participated in creating a coping skills ?menu? from the five categories of coping skills. Client's coping skill menu included: exercise, writing, body scan, decrease caffeine intake and positive affirmations. Pt's first day in IOP. Appeared to benefit from increasing repertoire of healthy coping skills. Will continue tx to increase healthy coping, improve daily functioning and prevent decompensation. Narrative Note: []
--- NOTE | 2021-03-06 09:04 | BH.SGPN.GN ---
Behaviors/Verbalizations/Mental Status: []Client alert and oriented, casually dressed and groomed. Eye contact good. Motor activity appropriate. Speech within normal limits. Affect congruent, mood depressed, agitated. Thoughts linear, logical, no signs of hallucinations or delusions. Reviewed client?s symptom tracker, no risk for suicidal ideation, plan, or intent as of 03/06/21 Client Response/Progress/Benefit: []Client receptive to session, attentive though a mostly passive participant throughout. Client reports feeling ?angry this morning. Attributes this to the current tension in his marriage and feeling like his is not acknowledging the areas he has made progress since seeking mental health help. Expressed feeling that he is disconnected from his family and struggles to enjoy time he spends with them. Receptive of supportive feedback and validation provided by the group. Did identify some positives which included having a ?project? to keep himself busy, describing that he has been renovating an old camper. Additionally, identified seeking mental health treatment as an area of progress. Does appear to struggle with external locus of control, which he has admitted to in prior process group. Recommended continued IOP tx to further promote healthy coping and sobriety, further improve mood stability and anger management, as well as prevent decompensation. Narrative Note: []
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
--- NOTE | 2021-03-06 11:12 | BH.SGPN.GN ---
Behaviors/Verbalizations/Mental Status: []Client alert and oriented, casually dressed and groomed. Eye contact good. Motor activity appropriate. Speech within normal limits. Affect congruent, mood euthymic. Thoughts linear, logical, no signs of hallucinations or delusions. Client Response/Progress/Benefit: []Client responded well to session AEB completing the resilience worksheet provided. Client participated in the discussion of how each resiliency component can help increase personal resiliency and worked cooperatively with group to identify strategies to enhance each of the components discussed. Client reported he feels he is doing well with all the resilience traits. Client stated he has a positive view of self and wonders ?what is the line between narcissistic and confident? as client feels he can be too confident about his appearance. Client seemed to benefit from discussing strategies for improving personal resilience and identifying resilience traits client already possesses. First week of IOP tx. Will continue IOP tx to prevent decompensation, learn healthy coping skills, and increase impulse control. Narrative Note: []
[2021-03-06 11:45] VITALS: BP 151/95; PULSE 86
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
--- NOTE | 2021-03-06 13:03 | BH.DR.ITP ---
Initial Treatment Plan Patient Information Visit Information: ADMISSION DATE: EXPECTED LOS: 4-6 weeks Problems/Symptoms Problem #1:: Depression Symptom:: Sadness, hopelessness, low motivation, worthlessness, guilt, passive thoughts of , recent suicidal ideation Problem #2:: Anxiety Symptom:: Worry, rumination, panic attacks
--- NOTE | 2021-03-07 14:24 | BH.DS_ITS ---
Discharge Summary - Demographics Date of Admission:: 03/05/21 Discharge Date: 03/07/21 Presenting Problems at Admission:: Pt with hx of ADHD, substance abuse issues and possible bipolar disorder. Referred by [facility] ER where he had been seen twice for suicidal thoughts and drug usein month of January 2021. Identified stressors were marital conflict and stress from 10 year old autistic son?s behavior issues. Patient has a history of depression and substance abuse in recent months. On January 26, 2021 the patient was seen in the emergency room after using Adderall and methamphetamine and presented with manic and some depressive symptoms and was referred to substance IOP. Patient says at the time he was abusing Adderall and methamphetamine for several months. The methamphetamine what he says was only small amounts about 3 times a week. He has not used methamphetamine, Adderall or cocaine since about mid January. The patient is currently not working because he quit his job in September 2020. He endorsed feeling very down, hopelessness, anhedonia, low motivation, worthlessness and passive thoughts of . He had panic attacks 2-3 times a week. Discharge Diagnoses:: 1. Major depressive disorder, recurrent, severe without psychosis F33.2. 2. Rule out bipolar, NOS. 3. Anxiety disorder, NOS. 4. Adderall, methamphetamine, caffeine and cocaine use disorders. 5. Primary support, work and financial issues Reason for Discharge:: Pt was admitted to inpatient psychiatric [facility] for suicidal threats. - Treatment Progress During Treatment & Response: Pt only attended IOP for 2 days, no progress observed. When pt did attend those 2 days he was attentive and engaged in group therapy sessions. Issues Still to be Addressed:: Pt could benefit from learning emotion regulation skills, healthy coping skills, challenge distorted thoughts, crisis management and continued work to help pt maintain sobriety. Discharge Recommendations/Instructions:: Pt recommended to follow through with recommendations provided by [facility] at discharge. Discharge Handout: Complete Discharge Handout with client on aftercare options and continuity of care.
== END 2021-03-07 23:19 ==
LOC: BHIOP 09:36
PROVIDERS: PCP Family Medicine; Referring Provider Psychiatry & Neurology Psychiatry; Visit Provider Psychiatry & Neurology Psychiatry
DX: F33.2 Major depressive disorder, recurrent severe without psychotic features (principal); F41.9 Anxiety disorder, unspecified; F15.90 Other stimulant use, unspecified, uncomplicated; F11.90 Opioid use, unspecified, uncomplicated; F14.90 Cocaine use, unspecified, uncomplicated; Z79.899 Other long term (current) drug therapy; F90.9 Attention-deficit hyperactivity disorder, unspecified type; G40.409 Other generalized epilepsy and epileptic syndromes, not intractable, without status epilepticus
CPT/HCPCS: 90792; H2012; H2020; T1002

== ENCOUNTER 2021-03-06 23:46 | Emergency (ER) | payer MEDICAID, SELFPAY ==
[2021-03-06 23:47] VITALS: BP 158/103; PULSE 78; RESP 18; TEMP 36.5; O2SAT 99; BMI 29.0
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
--- NOTE | 2021-03-07 00:17 | EDS_ITS ---
HPI History of Present Illness Chief Complaint: Suicidal Informant: patient and other (pink sheet) Narrative Narrative: Patient states that he got into a fight with his shonna. She had said she would be better off if he killed himself. He stated something like he would just go and do that. He did not elaborate anything more than that. He states he was never thinking of hurting himself and would not do that. However, I then read the pink sheet by the deputy. Evidently he had threatened this as he stated. But he also had a gun with him in his truck. He was threatening to shoot himself. When the police approached, the patient fled. He was later apprehended. This is a little bit more detail and risk then he initially shared with me. Patient is in intensive outpatient psychiatry and has another appointment with counseling that starts early March. He just started IOP on Thursday with 3 hours of counseling and had 3 hours earlier today also. He is taking his medications. [facility] Medical History Anxiety disorder, unspecified Bipolar disorder, unspecified Epilepsy Major depressive disorder, recurrent severe without psychotic features Narcolepsy Home Medications paroxetine HCl 30 mg PO DAILY 01/26/21 [History Last Taken 01/26/21] phenytoin sodium extended [Dilantin Extended] 400 mg PO QHS 01/26/21 [History Last Taken 01/26/21 08:00] modafinil 400 mg PO DAILY 02/24/21 [History Last Taken Unknown] Viagra PO/SL PRN PRN 03/06/21 [History Last Taken Unknown] divalproex [Depakote ER] 500 mg PO DAILY 03/06/21 [History Last Taken Unknown] Allergy/AdvReac Type Severity Reaction Status Date / Time latex AdvReac Rash Verified 03/06/21 23:51 nickel AdvReac Rash Verified 03/06/21 23:51 Surgical History Hx of tonsillectomy Social History household members: spouse and children Smoking Status: Current every day smoker tobacco type: cigarettes alcohol intake: current alcohol intake frequency: other substance use type: does not use ROS ROS ED Constitutional Constitutional ED: Denies chills or fever(s) Eyes Eyes: Denies blurry vision ENT ENT ED: Denies ear pain, rhinorrhea or sore throat Cardiovascular Cardiovascular: Denies chest pain or palpitations Respiratory/Chest Respiratory/Chest: Reports other Details: Patient states he has a slight smoker's cough but is not new or different and not productive. ; Denies dyspnea, dyspnea on exertion or sputum Gastrointestinal Gastrointestinal: Denies abdominal pain, diarrhea, nausea or vomiting Musculoskeletal Musculoskeletal: Denies myalgias Integumentary Denies rash Neurologic Neurologic: Denies headache(s) or weakness Psychiatric Psychiatric: Reports other Details: See history of present illness. Endocrine Endocrinology: Denies polydipsia or polyuria Allergic/Immunologic Allergic/Immunologic ED: Denies urticaria EXAM Physical Exam Const Vital Signs: 03/06/21 23:47 03/07/21 01:11 03/07/21 02:30 Temperature 97.7 F L Temperature Source Temporal Pulse Rate 78 Respiratory Rate 18 16 16 Blood Pressure 158/103 H Blood Pressure Mean 121 Pulse Ox 99 Oxygen Delivery Method Room Air 03/07/21 03:55 03/07/21 04:45 03/07/21 06:09 Temperature Temperature Source Pulse Rate 70 80 Respiratory Rate 14 14 16 Blood Pressure 121/77 H 126/85 H Blood Pressure Mean 91 98 Pulse Ox 98 Oxygen Delivery Method Room Air 03/07/21 06:22 Temperature Temperature Source Pulse Rate Respiratory Rate Blood Pressure Blood Pressure Mean Pulse Ox 95 Oxygen Delivery Method Room Air Positive well nourished and well developed; Negative for unkempt General Appearance ED: well developed and NAD; Negative for unkempt HEENT Reports moist mucous membranes Eyes General Eye ED: Negative for pale conjunctiva or scleral icterus Neck no JVD Resp normal respiratory effort and clear to auscultation bilaterally Auscultation: Negative for rales, rhonchi or wheezes Cardio regular rate, regular rhythm and no murmurs GI normal to inspection, nondistended, normoactive bowel sounds and non-tender Palpation: soft Back/Spine no CVA tenderness Extremity General Extremety ED: Negative for edema General Extremity: Negative for edema Neuro oriented x3 Sensorium / Orientation: alert Psych mental status grossly normal Appearance: Negative for unkempt Attitude: No agitated Mood & Affect: Negative for anxious Skin no rashes or lesions noted MDM MDM MDM Narrative Medical decision making narrative: Blood work shows normal CBC electrolytes. Dilantin is a bit low but that is common for him. Ethyl alcohol is only 5. Tox screen is positive for amphetamines. Patient is medically cleared for psychiatric evaluation and admission if needed. Crisis saw the patient. The patient really did not share the details about threatening to kill himself of the deputies approached her having a done in the truck that had to be taken. This is the patient's third visit to the ED in about 6 weeks. He has been going to intensive outpatient therapy. He has been taking his meds. Despite this he has come back in. He does have a pink sheet filled out by the deputies. We are going to work on placement to make sure this patient is getting the appropriate counseling, medications, therapy and help he needs. Lab Data Attestation: I reviewed the patient's lab results. Labs: Laboratory Results - last 24 hr 03/07/21 03/07/21 03/07/21 00:25 00:25 00:25 WBC 6.4 RBC 5.19 Hgb 15.6 Hct 45.3 MCV 87.3 MCH 30.1 MCHC 34.4 RDW Std Deviation 41.2 RDW Coeff of Danni 12.9 Plt Count 192 MPV 10.4 Immature Gran % (Auto) 0.300 Neut % (Auto) 47.1 Lymph % (Auto) 40.7 [place] % (Auto) 8.6 Eos % (Auto) 2.8 Baso % (Auto) 0.5 Absolute Neuts (auto) 3.0 Absolute Lymphs (auto) 2.62 Nucleated RBC % 0 Sodium 139 Potassium 4.0 Chloride 106 Carbon Dioxide 26.0 Anion Gap 7 BUN 18 Creatinine 0.98 Estim Creat Clear Calc 120.03 Est GFR (MDRD) Af Amer 113 Est GFR (MDRD) Non-Af 93 BUN/Creatinine Ratio 18.4 Glucose 117 H Calcium 8.9 Urine Opiates Screen Urine Methadone Screen Ur Barbiturates Screen Phenytoin 3.5 L Ur Phencyclidine Scrn Ur Amphetamines Screen U Methamphetamin-MDMA U Benzodiazepines Scrn Urine Cocaine Screen U Cannabinoids Screen Ur Drug Screen Comment Ethyl Alcohol 5.0 03/07/21 00:25 WBC RBC Hgb Hct MCV MCH MCHC RDW Std Deviation RDW Coeff of Danni Plt Count MPV Immature Gran % (Auto) Neut % (Auto) Lymph % (Auto) [place] % (Auto) Eos % (Auto) Baso % (Auto) Absolute Neuts (auto) Absolute Lymphs (auto) Nucleated RBC % Sodium Potassium Chloride Carbon Dioxide Anion Gap BUN Creatinine Estim Creat Clear Calc Est GFR (MDRD) Af Amer Est GFR (MDRD) Non-Af BUN/Creatinine Ratio Glucose Calcium Urine Opiates Screen NEGATIVE Urine Methadone Screen NEGATIVE Ur Barbiturates Screen NEGATIVE Phenytoin Ur Phencyclidine Scrn NEGATIVE Ur Amphetamines Screen POSITIVE H U Methamphetamin-MDMA NEGATIVE U Benzodiazepines Scrn NEGATIVE Urine Cocaine Screen NEGATIVE U Cannabinoids Screen NEGATIVE Ur Drug Screen Comment Ethyl Alcohol Discharge Plan Triage Chief Complaint: Suicidal ED Provider: Stephon Breen Dx/Rx/DC Orders Clinical Impression: Suicidal ideation Prescriptions: No Action phenytoin sodium extended [Dilantin Extended] 100 mg Capsule 400 mg PO QHS RF: 0 paroxetine HCl 30 mg tablet 30 mg PO DAILY RF: 0 modafinil 200 mg tablet 400 mg PO DAILY RF: 0 divalproex [Depakote ER] 500 mg Tablet Extended Release 24 Hr 500 mg PO DAILY RF: 0 Viagra PO/SL PRN PRN (Reason: ED) RF: 0 Primary Care Provider: Tommy John Referrals: Tommy John MD [Primary Care Provider] - Disposition Disposition: Psychiatric Hospital or Unit Discharge Location: [facility] Discharge Date/Time: 03/07/21 06:58
[2021-03-07 00:33] LABS: Absolute Lymphocyte Count 2.62 X10^3/uL (0.83-4.51); Basophil# 0.03 X10^3/uL; Basophil% 0.5 % (0-1); Eosinophil# 0.18 X10^3/uL; Eosinophils% 2.8 % (0-5); Hematocrit 45.3 % (40-54); Hemoglobin 15.6 g/dL (13.0-16.5); Lymphocyte # 2.62 X10^3/ul (0.83-4.51); Lymphocyte % 40.7 % (19-41); Mean Corp Hgb Conc 34.4 g/dL (32-36); Mean Corpuscular Hgb 30.1 pg (27.0-32.0); Mean Corpuscular Volume 87.3 fL (80-94); Mean Platelet Vol. 10.4 fl (6.2-12.0); Monocyte# 0.55 X10^3/uL; Monocyte% 8.6 % (0-10); NRBC Flagged by Analyzer 0 % (0-5); Neutrophil # 3.03 X10^3/uL (2.7-7.7); Neutrophil % 47.1 % (47-70); Platelet Count 192 K/mm3 (150-450); RBC Distribution Width CV 12.9 % (11.6-14.6); RBC Distribution Width SD 41.2 fl (35.1-43.9); Red Blood Count 5.19 M/mm3 (4.6-6.2); White Blood Count 6.4 K/mm3 (4.4-11.0)
[2021-03-07 00:52] LABS: Amphetamine Urine VISTA POSITIVE (<1000 ng/mL); Barbiturate Urine VISTA NEGATIVE (< 200 ng/mL); Benzodiazepine Urine VISTA NEGATIVE (< 200 ng/mL); Cocaine Urine VISTA NEGATIVE (< 300 ng/mL); Ecstacy Urine VISTA NEGATIVE (< 500 ng/mL); Methadone Urine VISTA NEGATIVE (< 300 ng/mL); PCP Urine VISTA NEGATIVE (< 25 ng/mL); THC Urine VISTA NEGATIVE (< 50 ng/mL); Vista UDS pH Range 6
[2021-03-07 01:02] LABS: Anion Gap 7 (5-15); BUN 18 mg/dL (7-18); BUN/Creat Ratio 18.4 RATIO (10-20); Calcium,Total 8.9 mg/dL (8.5-10.1); Chloride 106 mmol/L (98-107); Creatinine, Serum 0.98 mg/dL (0.70-1.30); EST Glomerular Filtration Rate 93 mL/min (>60); Est Glom Filt Rate - Afr Amer 113 mL/min (>60); Estimated Creatinine Clearance 120.03 ml/min; Glucose 117 mg/dL (74-106); Sodium Level 139 mmol/L (136-145)
[2021-03-07 01:11] VITALS: RESP 16
[2021-03-07 01:20] LABS: Phenytoin (Dilantin) Level 3.5 mL (10.0-20.0)
[2021-03-07 02:30] VITALS: RESP 16
[2021-03-07 03:55] VITALS: BP 121/77; PULSE 70; RESP 14; O2SAT 98
[2021-03-07 04:45] VITALS: RESP 14
[2021-03-07 06:09] VITALS: BP 126/85; PULSE 80; RESP 16
[2021-03-07 06:22] VITALS: O2SAT 95
--- NOTE | 2021-03-07 09:38 | ED.RN ---
THIS PATIENT INFORMED OUR LITIGATION COUNSEL, HER WAS LEAVING, THAT HE DOES NOT WANT ANYONE HAVING ANY INFORMATION ABOUT HIM. HE DOES NOT EVEN WANT ANYONE KNOWING HE WAS HERE
== END 2021-03-07 06:58 ==
LOC: ED 03-07 00:36
PROVIDERS: Emergency Provider Emergency Medicine; PCP Family Medicine
DX: R45.851 Suicidal ideations (principal); F17.210 Nicotine dependence, cigarettes, uncomplicated; F31.9 Bipolar disorder, unspecified; F41.9 Anxiety disorder, unspecified; G40.909 Epilepsy, unspecified, not intractable, without status epilepticus; G47.419 Narcolepsy without cataplexy; Z63.0 Problems in relationship with spouse or partner; Z79.899 Other long term (current) drug therapy
CPT/HCPCS: 80048; 80185; 80307; 82077; 85025; 87426; 99285

== ENCOUNTER 2021-03-14 09:40 | Outpatient (RCR) | payer MEDICAID, SELFPAY ==
--- NOTE | 2021-03-14 09:09 | BH.SGPN.GN ---
Behaviors/Verbalizations/Mental Status: []Eye contact is fair. Motor activity is appropriate. Appearance is casual. Speech is Appropriate. Mood is anxious and dysthymic. Affect is congruent. Thoughts are linear and logical. No evidence of psychosis. Reviewed daily check in sheet and no reports of suicidal ideations or intent. Client Response/Progress/Benefit: []Pt responded well to session AEB sharing thoughts and feelings and listening attentively to peers. Pt reported he had started IOP previously two weeks ago and attended two times until he went to inpatient psychiatric facility. Pt stated his had made very hurtful comments to him which led him to threaten to kill himself. Pt reported he drove off, taking his gun with him. Pt stated during the interaction eventually the police had gotten involved and pulled him over. Pt reported he didn't really want to kill himself, he had done it to make his see how her words can impact others. Pt reported he is hoping since returning to IOP he can focus on managing his emotions better and making more healthy decisions in his life. Pt's first day in IOP. Pt to continue IOP to improve emotion regulation, increase healthy coping skills and prevent decompensation. Narrative Note: []
--- NOTE | 2021-03-14 10:12 | BH.SGPN.GN ---
Behaviors/Verbalizations/Mental Status: []Client alert and oriented, casually dressed and groomed. Eye contact good. Motor activity appropriate. Speech within normal limits. Affect constricted, mood euthymic. Thoughts linear, logical, no signs of hallucinations or delusions Client Response/Progress/Benefit: []Pt was an active participant in group discussion and activity. Attentive during psychoeducation on what it means to take action. Pt identified symptoms he wants to gain control over which included need for validation, apprehension, anxiety, and fear of the unknown. Reports belief that if he could gain control over his fear of the unknown he would ?stop villainizing my and take responsibility for my actions.? Increased insight into what could be holding pt back from mental wellness and the importance of taking action on symptoms and obstacles rather than avoiding or ignoring. Will continue in IOP to increase impulse control, improve distress tolerance skills, and prevent decompensation. Narrative Note: []
--- NOTE | 2021-03-14 11:12 | BH.SGPN.GN ---
Behaviors/Verbalizations/Mental Status: []Client alert and oriented, casually dressed and groomed. Eye contact good. Motor activity appropriate. Speech within normal limits. Affect constricted, mood euthymic. Thoughts linear, logical, no signs of hallucinations or delusions. Client Response/Progress/Benefit: []Client responded well to session, taking notes and participating in worksheet discussion. Client set a goal to gain control over blaming his and not taking responsibility. Client plans to work on this by journaling each day when he feels angry instead of lashing out or avoiding. Client reports he will need to explore journaling apps and potentially find a therapist that will do couple?s counseling. Appeared to benefit from identifying a small goal to benefit mental health. Client recently hospitalized and this is his first day back in IOP. Will continue IOP tx increase impulse control and prevent decompensation. Narrative Note: []
--- NOTE | 2021-03-18 10:05 | BH.SGPN.GN ---
Behaviors/Verbalizations/Mental Status: []Client alert and oriented, casually dressed and groomed. Eye contact fair. Motor activity appropriate. Speech within normal limits. Affect congruent, mood euthymic. Thoughts linear, logical, no signs of hallucinations or delusions. Client Response/Progress/Benefit: []Client responded well to session, AEB client contributing to session and listening attentively to others. Client connected with the concept of anger becoming potentially habitual, and negatively affecting relationships. Client discussed having difficulty recognizing his triggers and managing his anger. Client completed anger iceberg activity, identifying experiencing disappointment, loss, relationship issues, and guilt as triggers for his anger. Discussed his anger warning signs as deflection, reddened face, and avoiding. Identified consequences of unmanaged anger as loss of support, damaged reputation, and the creation of additional problems. Client appeared to benefit from increasing awareness of anger triggers and warning signs. Progress noted in client sharing and being vulnerable in group session. Will continue IOP to increase anger management skills and healthy communication with supports. Narrative Note: []
--- NOTE | 2021-03-18 11:04 | BH.SGPN.GN ---
Behaviors/Verbalizations/Mental Status: []Client alert and oriented, casually dressed and groomed. Eye contact good. Motor activity appropriate. Speech within normal limits. Affect congruent, mood anxious, agitated, and depressed. Thoughts linear, logical, no signs of hallucinations or delusions. Client Response/Progress/Benefit: [] Pt new to IOP tx, did well to remain engaged throughout AEB participating in discussion and taking notes. Pt did well to work with group to identify internal costs of unmanaged anger. Identified that when unmanaged, his anger has resulted in a loss of supports, increased financial obligations, additional problems, and maintaining the cycle. Contributed as participants worked in small groups to brainstorm healthy coping skills for better managing anger which included: reaching out to supports, journaling, taking breaks, exercise, DDD, and looking at the consequences of responding in anger. Pt appeared to benefit from gaining awareness of the potential internal and external costs of anger; however, struggled with dismissing any of the healthy anger management skills discussed. Declined to identify a healthy skill he would like to begin using to better manage his own anger and expressed a desire to continue utilizing marijuana as a means of coping. Pt reliance on unhealthy coping techniques and limited willingness to explore alternative options may continue to impede progress. Will continue IOP tx to increase insight of how current coping mechanisms are maintaining depression and irritability, improve use of healthy coping skills to improve mood stability, reduce depression and irritability, and prevent decompensation. Narrative Note: []
--- NOTE | 2021-03-18 14:18 | BH.MDN ---
Multi-Disciplinary Note - Note 60-min Individual Time Started:: 12:30 Date: 03/18/21 Purpose of session/treatment goals addressed:: Purpose of session was to assess pt's current symptoms and stressors, gather background information and identify treatment goals for IOP. Eye Contact:: Poor Motor Activity:: Restless Appearance:: Disheveled Speech:: Rambling Mood:: Anxious Affect:: Congruent Thoughts:: Racing, No evidence of hallucinations/delusions noted Staff Interventions:: motivational interviewing, rapport building, treatment planning, goal setting Client Response:: Pt reported he is having desire to return to inpatient hospitalization because I had no problems when I was there. Pt stated if [facility] allowed him to have cigarettes he likely would have tried to go back. Pt able to recognize this would be a temporary fix. Pt stated he doesn't like being home because he knows he will get in a fight with his at some point. Pt reported his can be very mean during their arguments which he stated triggers him. Pt stated over the weekend he stayed at a friend's house because he didn't want to make an impulsive act like he did two weeks ago that led to his hospitalization. Pt reported in addition to marital stress there is a lot of financial stress. Stated they spent all their savings in the last 6 months. 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 Pt stated it does add some stress because he reports his will make comments about him not working. Pt reported he plans to get a job after he completes IOP. Pt stated he needs to focus on getting better so he can have healthier relationship with and kids. Pt reported his 10 year old son with autism is a significant source of stress due to his son's anger outbursts. Pt stated he wants to be able to manage his own anger so he can better help his son. Pt identified relationship and anger as biggest problems in his life currently. Pt stated he can't think of a time in which he has had a healthy relationship. pt reported growing up his parents were addicts and he was raised by his grandparents. Pt stated he did not have good role models for positive relationships. Pt reported his own drug use started at age 16 which he recognizes didn't help form healthy relationships. pt expressed desire to learn how to form and maintain healthy relationships. Pt reported another goal is to learn how to manage anger in more effective ways. pt stated currently uses cigarettes and staying away from his as strategies to curb anger. Pt reported he is considering getting his marijuana card to help manage his stress and anger level. Pt does not see the problem with relying on substances to manage his mood. Pt also does not see the potential harms of starting marijuana when only 2 months sober from using meth. When asked to create a small goal for the week pt stated to maintain and not go backwards. Pt struggled with identifying specific goal or skills could practice over the next week. Stated he would work on trying to be reflective vs deflecting when interacting with his . However, did not state what would help him manage emotions in the moment. Risks/Concerns:: denies suicidal/homicidal ideation, plan or intention to date. Does express desire to have inpatient psychiatric admission. This is not due to suicidality this is due to wanting to avoid being around his problems. Progress Toward Goals/Plan:: No progress noted. Session focused on identifying treatment goals. Pt expresses desire to get better, but struggles with being open to suggestions on how to improve situation. Seems to lack insight into own behaviors, finding external causes for why struggling. Pt to continue IOP to improve awareness, increase healthy coping and prevent decompensation. Time Stopped:: 13:30
--- NOTE | 2021-03-18 15:45 | BH.MTP ---
Master Treatment Plan - Patient Information Program Physician:: Dr. Ferrer Primary Therapist:: Ileana Kraft, [facility] - Psychiatric Diagnoses Psychiatric Diagnoses:: 1. Bipolar disorder, NOS; most recent episode depression. 2. Anxiety disorder, NOS. 3. 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 4. Strong cluster B traits. 5. Primary support, work and financial issues Diagnosis Code(s):: F31.9 - Estimated LOS Estimated LOS (in weeks):: 6 Problem/Goal #1 - Problem/Goal #1 Stated Goal:: Client will reduce depression and irrational outbursts due to MDD through IOP. Description of Barriers: Pt's limited insight, poor emotion regulation, marital stress, distorted thought patterns, external locus of control, and financial stress could be barriers to treatment. - Objectives Objective #1 Stated Objective: Client will learn and utilize 2-3 healthy coping strategies to manage depressive symptoms as shown by reduced DSM-5 cross-cutting symptom measure score. Interventions: Therapist will utilize CBT techniques to assist client with understanding the connection between thoughts, feelings and behaviors. Education will be provided on behavioral activation. Therapist will assist client in learning internal coping strategies to manage depressive symptoms, along with helping client identify triggers. Discharge Criteria: Client will have achieved this goal when can verbalize and utilize at least 2 healthy coping strategies that successfully manage depressive symptoms. Pt will have met this goal when pt?s score on the DSM 5 cross cutting measure for depression has been decreased and per pt?s report daily functioning has improved. Target Date: 04/25/21 Review Date: 04/11/21 Objective #2 Stated Objective: Client will learn and implement 2 conflict resolution skills to manage interpersonal problems. Interventions: Therapist will teach client appropriate conflict resolution skills using modeling and behavior rehearsal. Discharge Criteria: Client will have achieved this goal when can verbalize and has successfully utilized at least one conflict resolution skill. Target Date: 04/25/21 Review Date: 04/11/21 Problem/Goal #2 - Problem/Goal #2 Stated Goal:: Client will reduce overall frequency, intensity, and duration of anxiety to improve functioning. Description of Barriers: Pt's limited insight, poor emotion regulation, marital stress, distorted thought patterns, external locus of control, and financial stress could be barriers to treatment. - Objectives Objective #1 Stated Objective: Client will learn and implement 2-3 calming skills to reduce overall anxiety and manage anxiety Interventions: Therapist will teach client calming/relaxation skills and assign client homework which practices relaxation skills daily. Discharge Criteria: Client will have achieved this goal when can verbalize at least 2 calming skills and implement those skills. Target Date: 04/25/21 Review Date: 04/11/21 Objective #2 Stated Objective: Pt will decrease anxious symptoms AEB pt?s score on the DSM 5 cross-cutting measure improve pt?s daily functioning. Interventions: Through groups and individual therapy, pt will be provided education about anxiety?s impact on body and common physiological reaction to anxiety. Therapist will teach pt appropriate breathing techniques and build healthy coping skills to manage daily anxieties. Discharge Criteria: Pt will have met this goal when pt?s score on the DSM 5 cross cutting measure for anxiety has been decreased and per pt?s report daily functioning has improved. Target Date: 04/25/21 Review Date: 04/11/21
--- NOTE | 2021-03-20 09:05 | BH.SGPN.GN ---
Behaviors/Verbalizations/Mental Status: []Client alert and oriented, casually dressed and groomed. Eye contact poor. Motor activity appropriate. Speech within normal limits. Affect flat, mood irritable and depressed. Thoughts linear, logical, no signs of hallucinations or delusions. Reviewed client?s symptom tracker, no risk for suicidal ideation, plan, or intent as of 03/20/21 Client Response/Progress/Benefit: []Client responded well to session, quiet unless sharing his check-in. Client reports feeling pessimistic this morning due to ongoing interpersonal relationship issues with his and fear of ruining their marriage. Client shared he was able to control his anger more than he has in the past and he also took steps to make potential weapons not accessible in the house. Client reports he struggles with finding replacement coping skills for smashing things but client is considering buying landscaping rocks to break. Therapist attempted to provide alternative ideas, but client stated belief those would not be effective for him. Progress noted in client's increased self-awareness. Will continue IOP tx to prevent decompensation, monitor mood, and increase knowledge of healthy coping skills. Narrative Note: []
--- NOTE | 2021-03-20 10:15 | BH.SGPN.GN ---
Behaviors/Verbalizations/Mental Status: []Client alert and oriented, casually dressed and groomed. Eye contact fair. Motor activity restless. Speech within normal limits. Affect constricted, mood depressed, irritable. Thoughts linear, logical, no signs of hallucinations or delusions. Client Response/Progress/Benefit: []Client receptive to session, providing input at times and listened attentively to peers. Provided input as the group brainstormed the positive and negative aspects of stress on physical and mental health. Group did well to identify the benefits of stress as well as the impact of distress on performance and mental health. Client identified top stressors such as family/relationships, money, fear/doubt about own ability to get better, the unknown, and unfinished projects. Client identifies family/relationships to be most significant stressor currently. Stated when has overwhelming amount of stress he will take extreme measures to isolate self. client seemed to benefit from increasing self-awareness of current stressors. Recommended to continue IOP tx to promote use of healthy coping skills, improve emotion regulation and prevent decompensation. Narrative Note: []
--- NOTE | 2021-03-20 11:30 | BH.NA_ITS ---
Physical Data - Vital Signs Pulse Rate: 86 Blood Pressure: 151/95 - Height/Weight Height: 1.85 m Weight:: 102.058 kg Weight in Pounds: 225.0 lbs Current Medication Compliance - Medication Compliance Do you take your medication as prescribed?: Yes Nutritional History - Appetite Nutritional Instructions:: If client shows signs of a swallowing problem, weight change of 10 pounds or more in the last month, or is on a diabetic diet, the physician will review and request a dietitian consult, as appropriate. All unintentional weight loss will be referred to the physician for decision on need for dietitian consult. Describe your appetite:: Fair Functional Assessment - Sleep Pattern Describe any problems with sleeping: Client states while he was in [place], he was not getting his narcolepsy medication and was sleeping 12-16 hours per day. Client states since being released from the hospital a week ago, he is sleeping about 7 hours per day. - Activities Motor Activity:: Functional Sensory/Communication Assess - Communication Problems Do you have difficulty understanding what people are saying?: No Medical Problems/History - Neurological Conditions Neurological: Other (See comments) Comments:: narcolepsy, epilepsy (client states he has not had a seizure in several years) Surgical History - Surgical History Have you had any surgeries? If so, list type and date:: Yes - tonsilectomy Substance Abuse - Substance Abuse Please describe substance abuse in the last 30 days:: Client states he drinks alcohol occasionally. Client states since his hospitalization last week, he has been smoking 1/2 to 3/4 pack of cigarettes per day and has been a smoker since age 22. Client states in the last few months, he had been using Adderall PO and also snorting it, and then went on to use methamphetamines for a few months. Client states he used cocaine once in the last few months as well. Client states he occasionally uses marijuana. Client denies any drug use since his recent hospitalization. Client states his caffeine intake has slightly decreased since hospitalization, stating he does drink 1 energy drink per day and 1-2 cups of coffee. Mental Status Summary - Mental Status Significant Findings/Observations on Appearance and Mood:: Client is alert and oriented x 4. Client is casually groomed and wearing a mask due to the pandemic. Client makes good eye contact. Client's speech has normal rate and volume. Client has appropriate affect and makes logical associations. Client denies delusions/hallucinations. Client denies SI. Suicide Assessment - Suicidal Ideation Are you currently or have you been suicidal in the past?: Yes - denies SI since release from hospital Suicidal Intentional Rating Scale (SIRS): Suicidal thoughts (past) Physician Notification: If Active suicidal thoughts/Will not contract for safety is checked, contact physician and document in the Physician Notification section below. Assault History/Potential Past Psychiatric History - MH Treatment Hx Past Psychiatric Medications:: Lexapro, Seroquel (only took once and had grand mal seizures), Paxil Age of first mental health symptoms: Client states he was diagnosed with ADHD between ages [age]. Client states he was diagnosed with depression (and at the time told he also had kaushal but states he was never told he had bipolar) around age 17. Describe (age, circumstance, etc) any past hospitalizations: Client has past hospitalizations but is a poor historian as to when these were. Client was just hospitalized at [facility] 03/07-03/13/21 for SI. Current providers for mental health treatment (counselor, psychiatrist, gearcase assembler, etc.): Client has an appointment in early March to establish care at [facility]. Fall Risk Assessment - Age Age: Less than 60 - Mental Status Mental Status: Willing & able to ask for assistance when needed - Physical Status Physical Status: No problems - Impairments Impairments: None - Elimination Elimination: Continent AND independent - Gait or Balance Gait or Balance: Walks independently - Hx of Falls History of falls in the past 6 months: No known history - Medications/Substances Psychotropics:: Antipsychotics, Mood stabilizers Medications/substances used within the past 24 hours or ordered to administer: 1-2 of the medications/substances listed above - Total Score Total Points:: 1 RN Summary of Impressions - Impressions Recommendations: Include psychiatric and medical issues, treatment planning recommendations, and discharge planning needs. Impressions: Psychiatric Issues: 1. Bipolar disorder, NOS; most recent episode depression. 2. Anxiety disorder, NOS. 3. 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 4. Strong cluster B traits - Level of Care How do the client's current symptoms and functional deficits support need for this level of care?: Client had previously been admitted to [facility] earlier in February and was then hospitalized at [facility] 03/07/21 for SI after an argument with his . Client reports he is feeling somewhat better after his release from the hospital and does report he has had no SI in the last week. Client does report he is still having arguments with his , but over the weekend he left his house and stayed somewhere else so the fight would not escalate. IOP will continue to promote gains and prevent further decompensation while providing social support and skills training.
--- NOTE | 2021-03-20 12:05 | BH.PSY.EVA_ITS ---
Psychiatric Evaluation Initial Evaluation Initial Evaluation: History of Present Illness: [] The patient is a 36-year-old male with a history of attention deficit disorder, substance abuse issues and possible bipolar disorder who was admitted to the [facility] behavioral health IOP program 2 weeks ago on March 06, 2021. Late that evening the patient had a fight with his and threatened to shoot himself and then left the house with a gun in his truck. The police were called and the [place] police brought the patient to the emergency room on March 07, 2021 and he was admitted to [facility] from March 07, 2021 to discharge on March 13, 2021. Patient states that since his discharge from the admission 1 week ago his mood is much better overall. He says that he still has occasional anger outburst with his and some rather impulsive behavior when this happens but he feels that this has lessened since he has been taking the medication now. He states that he was not taking his Depakote regularly before the March 07 admission. He tries to isolate himself from his at times when they argue to prevent outbursts. Last time the area was about 5 days ago. He still has some anhedonia and is very depressed. He feels still hopeless and worthless and has low motivation and low energy level. He is sleeping anywhere from 6 to 8 hours a night. He denies now having any passive thoughts of . He denies also suicidal ideation, plan for suicide or homicidal ideation. He has no access to guns now as the police made sure to remove them. His tox screen was negative in the emergency room on March 07 except for barbiturates which is a false positive due to the Dilantin he takes for his seizure disorder. Patient says he occasionally feels hopeless but is improving as he is considering taking a job still at the [employer] like he did in the past. And he understands this could lead to a divorce but he feels like this might be a reasonable outcome. His son is also a big stressor to care for and he feels like even if his son has to go back to the son's mother it would be better than the situation currently. Current Psychiatric Medications: [] Depakote 1000 mg p.o. every morning (increased 2 weeks ago); modafinil 100 mg p.o. every morning; Remeron 15 mg p.o. nightly (started 2 weeks ago); Risperdal 1 mg p.o. every morning (started 1 week ago) Past Psychiatric History: [] Patient has a history now of 5 prior psychiatric admissions. For the rest of the history please refer to the initial evaluation dictated on March 06, 2021. Mental Status Examination: [] Patient is a 36-year-old male who is seen wearing a mask due to the pandemic and is casually dressed and groomed with good hygiene. He has large gauges bilaterally in his ears and a small piercing in his lip. He has no silk psychomotor agitation or retardation. He is cooperative and remains somewhat charming during the interview. Eye contact is good and speech is normal rate and rhythm and fluent with no pressure. Mood is depressed. Affect is full and normal today. Thought process is goal- directed and organized. Thought content: There is no evidence of passive thoughts of , suicidal ideation, homicidal ideation, hallucinations, delusions or symptoms of kaushal. Reality testing is intact. Average intelligence is average. Judgment is limited. Insight is limited. Impulsivity is high. Diagnoses: [] 1. Bipolar disorder, NOS; most recent episode depression 2. Anxiety disorder, NOS 3. 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 4. Strong cluster B traits 5. Primary support, work and financial issues Plan: [] The patient will restart the IOP program at [facility] as the structure, support, education, and group therapy will hopefully prevent worsening of the patient's symptoms which might require another hospital admission. He felt safe during the interview and if it anytime he does not feel safe he will let us know or go to the emergency room. The risks, options, possible complications and side effects of the medications were again discussed with the patient and he understands and accepts these. He agrees to get a Depakote level in the next day or so as he is taken the 1000 mg of Depakote daily for over a week now. He will change and take his Depakote in the at bedtime from now on instead of in the morning. No medication changes were made today as they were recently changed on his psych admission. I will see the patient in follow-up in 1 week and he will continue to follow-up with his outpatient providers.
[2021-03-20 12:10] VITALS: BP 151/95; PULSE 86
--- NOTE | 2021-03-20 12:36 | BH.DR.ITP ---
Initial Treatment Plan Patient Information Visit Information: ADMISSION DATE: EXPECTED LOS: 4-6 weeks Problems/Symptoms Problem #1:: Mood instability Symptom:: Depression, anger, impulsivity recent suicidal ideation, hopelessness, anhedonia, low energy, decreased concentration, guilt. Problem #2:: Anxiety Symptom:: Worry, rumination
--- NOTE | 2021-03-22 15:53 | BH.MDN ---
Multi-Disciplinary Note - Note 45-min Individual Time Started:: 09:15 Date: 03/22/21 Purpose of session/treatment goals addressed:: Purpose of session was to address goal 1 from MTP. Eye Contact:: Fair Motor Activity:: Restless Appearance:: Casual Speech:: Rambling Mood:: Anxious, Dysthymic Affect:: Constricted Thoughts:: Logical, Racing, No evidence of hallucinations/delusions noted Staff Interventions:: motivational interviewing, psychoeducation on: - conflict resolution, rapport building, goal setting Client Response:: Pt reported he is having a rough morning because his made it clear that she wanted him to find another place to stay over the weekend. Pt stated he had a fight with his Thursday and of this week. Pt reported he doesn't want to go home most days because doesn't want to fight with his . Pt stated his fight yesterday was due to him leaving their bedroom staying I'll be right back but being gone for an extending time. Pt reported he hasn't stayed in his bedroom with his for over a month. Pt reported instead of returning to the bedroom right away he went to have a smoke, answered a crisis call from his friend and scrolled on his phone. Pt reported then his texted him and the fighting started. Pt struggled with seeing how his choice to not communicate directly with his what he was going to do impacted the situation. Pt admitted he is fearful of conflict so often says nothing because wants to avoid conflict. Pt appared to connected with psychoeducation about conflict resolution. However, when asked to create a small goal on how to improve his conflict resolution, pt dismissed this idea. Instead he set a goal to stay sober from uppers, giving self permission to smoke marijuana to help him stay calm. Risks/Concerns:: Denies suicidal/homicidal ideation, plan or intention to date. future focused. no access to firearms. Progress Toward Goals/Plan:: No progress noted. Pt continues to use avoidance as his way of coping and believes substances are the solution to help manage his emotions. Pt often dismisses therapist suggestions and teaching about healthy coping skills; stating that doesn't work. Pt's extrenal locus of control seems to be barrier to treatment progress. Pt to continue IOP to increase use of healthy coping skills, decrease avoidance behaviors and prevent decompensation. Time Stopped:: 10:00
--- NOTE | 2021-03-25 09:04 | BH.SGPN.GN ---
Behaviors/Verbalizations/Mental Status: []cc Client Response/Progress/Benefit: []Pt receptive of session, engaged and provided input throughout. Pt discussed feeling positive yet apprehensive on this date. Reflected that he is positive as he has had several good days in a row. Noted this included sleeping in his own bed for three days in a row, spending time reviewing coping skills with his son, and successfully taking steps away to get a break when needed. Discussed he is apprehensive of his ability to maintain these gains however as this has been a significant struggle for him in the past. Discussed wanting to continue to make progress as he has begun to see improvements in his marriage as well. Appeared to benefit from supportive group environment and reflecting on skills used. Continues to struggle with minimization at times which could impede progress at times. Recommended continued IOP tx to further promote healthy skill application, continue to improve communication with supports, as well as increase mood stability. Narrative Note: []
--- NOTE | 2021-03-25 10:10 | BH.SGPN.GN ---
Behaviors/Verbalizations/Mental Status: []Client alert and oriented, casually dressed and groomed. Eye contact fair. Motor activity appropriate. Speech within normal limits. Affect congruent, mood euthymic. Thoughts linear, logical, no signs of hallucinations or delusions. Client Response/Progress/Benefit: []Client responded well to session AEB client contributing and listening attentively to others. Client connected with the topic of making change, discussing the importance of not living in your comfort zone and to ?endless possibilities? that come with change. Discussed barriers to change as anxiety such as ?Will I be good enough?? and external factors such as availability of resources for change. Client participated in the emotion pictionary activity, and was able to relate how each emotion could be experienced in relation to change. Client also participated in discussion regarding the stages of change and the feelings that accompany them. Client seemed to benefit from increasing awareness of stages of change and the range of emotions that come with making change. Progress noted in client acknowledging the importance of change in group session. Will continue IOP treatment to increase anger management skills, and improve communication with supports. Narrative Note: []
--- NOTE | 2021-03-25 11:10 | BH.SGPN.GN ---
Behaviors/Verbalizations/Mental Status: []Client alert and oriented, casually dressed and groomed. Eye contact good. Motor activity appropriate. Speech within normal limits. Affect constricted, mood dysthymic. Thoughts linear, logical, no signs of hallucinations or delusions. Client Response/Progress/Benefit: [] Client responded well to session, attentive and contributing, but on his phone at times. Did well to process activity and work with group to relate the barriers and strategies used to overcome the barriers to managing change in own life. Client identified a change client would like to make as increasing physical self-care through showering more and brushing his teeth. Client reports belief he is in between three stages of change as there are days where he does well to motivate himself, but he also struggles with apathy and self-doubt. Appeared to benefit from identifying a small goal to work towards. Client will continue IOP tx to increase emotional regulation skills, improve impulse control, and increase interpersonal effectiveness skills. Narrative Note: []
--- NOTE | 2021-03-26 09:05 | BH.SGPN.GN ---
Behaviors/Verbalizations/Mental Status: []Client alert and oriented, casually dressed and groomed. Eye contact fair. Motor activity appropriate. Speech within normal limits. Affect constricted, mood depressed. Thoughts linear, logical, no signs of hallucinations or delusions. Reviewed client?s symptom tracker, no risk for suicidal ideation, plan, or intent as of 03/26/21 Client Response/Progress/Benefit: C[]Client responded well to session, quiet, but sharing when prompted. Client reports feeling apathetic this morning as client's stressors at home are ongoing. Client reports he is trying to manage his anger better and this is going well sometimes and other times not well. Client shared his time management was better today which helped client get to IOP closer to on time after dropping off his daughter. Client continues to struggle with application of coping skills and he often minimizes his symptoms AEB client having mostly positive check-ins, but self-reporting worse functioning and mood on the daily symptom tracker. Will continue IOP tx to increase application of coping skills outside of IOP and to improve emotional regulation skills. Narrative Note: []
--- NOTE | 2021-03-26 10:15 | BH.SGPN.GN ---
Behaviors/Verbalizations/Mental Status: []Client alert and oriented, casually dressed and groomed. Eye contact fair. Motor activity appropriate. Speech within normal limits. Affect constricted, mood dysthymic. Thoughts linear, logical, no signs of hallucinations or delusions. Client Response/Progress/Benefit: []Client engaged participant AEB providing contributions during group discussion and listened attentively to peers. Helped group discuss the benefits of relationships as well as the potential factors maintaining unhealthy relationships. Helped group identify characteristics that can lead to unhealthy relationships which included: poor communication, disrespect, poor emotional regulation, blaming others, and substance abuse. Pt identified he struggles with poor communication, sometimes disrespectful and dishonesty within relationships. Appeared to benefit from increasing awareness of the impact unhealthy relationships can have on mental health. Pt to continue IOP to increase healthy coping, challenge distorted thoughts and prevent decompensation. Narrative Note: []
--- NOTE | 2021-03-26 11:15 | BH.SGPN.GN ---
Behaviors/Verbalizations/Mental Status: [] Client alert and oriented, casually dressed and groomed. Eye contact good. Motor activity appropriate. Speech within normal limits. Affect congruent, mood agitated, anxious. Thoughts linear, logical, no signs of hallucinations or delusions. Client Response/Progress/Benefit: [] Client receptive of session AED taking notes and providing input throughout. Attentive during psychoeducation about characteristics of healthy, unhealthy, and abusive relationships. Pt identified that he has been working to improve his trust of others and continue to work to repair relationships when trust has been violated. Reflected upon relationship strengths which pt identified as willingness to trust, equality in decision-making, as well as enjoying personal time. Appeared to benefit from reflecting upon personal relationship strengths, as well as brainstorming strategies to build healthier relationships. Pt to continue IOP tx to maintain mood stability, continue to promote healthy coping skill application, conflict resolution, and communication with supports, as well as prevent decompensation. Narrative Note: []
== END 2021-03-26 23:59 ==
LOC: BHIOP 09:40
PROVIDERS: PCP Family Medicine; Referring Provider Psychiatry & Neurology Psychiatry; Visit Provider Psychiatry & Neurology Psychiatry
DX: F31.9 Bipolar disorder, unspecified (principal); F41.9 Anxiety disorder, unspecified; Z79.899 Other long term (current) drug therapy; F98.8 Other specified behavioral and emotional disorders with onset usually occurring in childhood and adolescence; F11.90 Opioid use, unspecified, uncomplicated; F14.90 Cocaine use, unspecified, uncomplicated
CPT/HCPCS: 99214; H2012; H2020; S9480; T1002; 90834; 90837

== ENCOUNTER 2021-03-23 21:33 | Emergency (ER) | payer MEDICAID, SELFPAY ==
[2021-03-23 21:34] VITALS: BP 141/90; PULSE 88; RESP 17; TEMP 37.3; O2SAT 97; BMI 29.7
--- NOTE | 2021-03-23 22:24 | ED.VIS.CHEST ---
HPI History of Present Illness Chief Complaint: Chest Other Informant: patient Onset/Context/Timing Onset: Yesterday Activity at onset: - (Awoke with symptoms) Timing: Continuous Quality: Positive for - (Sore) Location: Left Parasternal Current Severity: Mild Maximum Severity: Moderate Worsened By: Movement of Torso Relieved By: Rest and Remaining Still Associated Symptoms: Negative for Nausea, Diaphoresis, Dyspnea, Cough, Fever, Lightheadedness and Palpitations Narrative Narrative: Patient states that he went to sleep with his and during the night, she basically had her arm resting on his chest, with her elbow at his solar plexus, he woke up with it hurting at that same area and has been persistent. States occasionally has some discomfort in his back he is not sure if this is related or not. He denies any intrathoracic symptoms. The pain in his chest is worse with certain position changes or movements, but not with breathing or deep inspiration. He denies any systemic symptoms or history of DVT/PE, leg pain or swelling. [facility] Medical History Anxiety disorder, unspecified Bipolar disorder, unspecified Epilepsy Major depressive disorder, recurrent severe without psychotic features Narcolepsy Home Medications phenytoin sodium extended [Dilantin Extended] 200 mg PO TID 01/26/21 [History Last Taken 01/26/21 08:00] modafinil 400 mg PO DAILY 02/24/21 [History Last Taken Unknown] Viagra PO/SL PRN PRN 03/06/21 [History Last Taken Unknown] divalproex [Depakote ER] 1,000 mg PO DAILY 03/06/21 [History Last Taken Unknown] mirtazapine [Remeron] 15 mg PO QHS 03/20/21 [History Last Taken Unknown] multivitamin 1 tab PO DAILY 03/20/21 [History Last Taken Unknown] risperidone [Risperdal] 1 mg PO DAILY 03/20/21 [History Last Taken Unknown] Allergy/AdvReac Type Severity Reaction Status Date / Time latex AdvReac Rash Verified 03/06/21 23:51 nickel AdvReac Rash Verified 03/06/21 23:51 peas AdvReac Rash Verified 03/23/21 21:34 wheat AdvReac Rash Verified 03/23/21 21:34 RYE AdvReac Rash Uncoded 03/23/21 21:34 Surgical History Hx of tonsillectomy Social History household members: spouse and children Smoking Status: Current every day smoker tobacco type: cigarettes alcohol intake: current alcohol intake frequency: other substance use type: does not use ROS ROS ED Constitutional Constitutional ED: Denies chills or fever(s) Eyes Eyes: Denies change in vision or diplopia ENT ENT ED: Denies rhinorrhea or sore throat Cardiovascular Cardiovascular: Reports as per HPI and chest pain; Denies palpitations Respiratory/Chest Respiratory/Chest: Denies cough, dyspnea or hemoptysis Gastrointestinal Gastrointestinal: Denies abdominal pain, diarrhea, nausea or vomiting Genitourinary Genitourinary ED: Denies dysuria or hematuria Musculoskeletal Musculoskeletal: Reports back pain; Denies neck pain Integumentary Denies abscess or rash Neurologic Neurologic: Denies headache(s), paresthesias or weakness Psychiatric Psychiatric: Denies anxiety or suicidal thoughts EXAM Physical Exam Const Vital Signs: 03/23/21 21:34 03/23/21 21:44 03/23/21 22:31 Temperature 99.1 F Temperature Source Temporal Pulse Rate 88 85 Respiratory Rate 17 16 Respiratory Effort Normal Blood Pressure 141/90 H 134/82 H Blood Pressure Mean 107 99 Pulse Ox 97 96 Oxygen Delivery Method Room Air Room Air Positive well nourished and well developed General Appearance ED: well developed and NAD HEENT Reports moist mucous membranes normocephalic and atraumatic Eyes PERRL and EOMs intact bilaterally Neck full ROM and supple Chest Wall Chest Narrative: Tender mildly inferior aspect of parasternal ribs on the left without crepitance or deformity/flail. No splinting with deep inspiration. Resp normal respiratory effort and clear to auscultation bilaterally Cardio regular rate, regular rhythm and no murmurs Rate: Negative for tachycardic GI non-tender and non-distended Auscultation: normoactive bowel sounds Palpation: soft Back/Spine no CVA tenderness General Back: other FROM Extremity normal to inspection General Extremety ED: Negative for edema, pulses abnormal or tenderness General Extremity: Negative for edema or pulses abnormal Neuro oriented x3, CN's II-XII intact bilaterally and no sensory deficits noted Sensorium / Orientation: awake and alert Motor Exam: strength 5/5 throughout Skin no rashes or lesions noted and no wounds MDM MDM MDM Narrative Medical decision making narrative: Patient states he is more interested in diagnosis and making sure he is okay then he is with the pain itself. I reassured him, his PERC score is 0, and I do not think he requires further emergent work-up at this time. I suspect this is costochondritis, maybe it is related to the historical events may be something different, or incidental. Anti-inflammatories recommended and follow-up if it persist longer than a week and he is comfortable with that plan and declined medications here and/or prescription. Discharge Plan Triage Chief Complaint: Chest Other ED Provider: Anirudh Barrera Dx/Rx/DC Orders Clinical Impression: Acute costochondritis Instructions: Costochondritis Prescriptions: No Action phenytoin sodium extended [Dilantin Extended] 100 mg Capsule 200 mg PO TID RF: 0 modafinil 200 mg tablet 400 mg PO DAILY RF: 0 divalproex [Depakote ER] 500 mg Tablet Extended Release 24 Hr 1,000 mg PO DAILY RF: 0 Viagra PO/SL PRN PRN (Reason: ED) RF: 0 multivitamin Tablet 1 tab PO DAILY RF: 0 mirtazapine [Remeron] 15 mg Tablet 15 mg PO QHS RF: 0 risperidone [Risperdal] 1 mg Tablet 1 mg PO DAILY RF: 0 Primary Care Provider: Tommy John Referrals: Tommy John MD [Primary Care Provider] - 1 Week if not improving Disposition Disposition: Home, Self Care Discharge Date/Time: 03/23/21 22:31
[2021-03-23 22:31] VITALS: BP 134/82; PULSE 85; RESP 15; RESP 16; O2SAT 96
== END 2021-03-23 22:31 | disposition home or self-care (01) ==
PROVIDERS: Emergency Provider Emergency Medicine; PCP Family Medicine
DX: M94.0 Chondrocostal junction syndrome [Tietze] (principal); F17.210 Nicotine dependence, cigarettes, uncomplicated; F31.9 Bipolar disorder, unspecified; F41.9 Anxiety disorder, unspecified; G40.909 Epilepsy, unspecified, not intractable, without status epilepticus; G47.419 Narcolepsy without cataplexy
CPT/HCPCS: 99282

== ENCOUNTER → 2021-03-25 08:40 | Outpatient (CLI) | payer MEDICAID, SELFPAY ==
[2021-03-25 09:48] LABS: Valproic Acid (Depakene) Level 40 ug/mL (50-100)
[2021-03-25 09:51] LABS: AST(SGOT) 21 U/L (15-37); Alanine Aminotransfer ALT/SGPT 39 U/L (16-61); Albumin, Serum 3.6 g/dL (3.2-5.0); Alkaline Phosphatase 80 U/L (45-117); Bilirubin, Direct 0.09 mg/dL (0.00-0.30); Globulin 3.2 g/dL (2.2-4.2); Protein, Total 6.8 g/dL (6.4-8.2)
== END ==
PROVIDERS: PCP Family Medicine; Referring Provider Psychiatry & Neurology Psychiatry; Visit Provider Psychiatry & Neurology Psychiatry
DX: Z79.899 Other long term (current) drug therapy (principal)
CPT/HCPCS: 36415; 80076; 80164

== ENCOUNTER 2021-03-27 09:00 | Outpatient (RCR) | payer MEDICAID, SELFPAY ==
[2021-03-27 00:41] VITALS: BP 151/95; PULSE 86
--- NOTE | 2021-04-01 09:04 | BH.SGPN.GN ---
Behaviors/Verbalizations/Mental Status: []Client alert and oriented, casually dressed and groomed. Eye contact good. Motor activity appropriate, at times appearing restless AEB bouncing leg and fidgeting. Speech within normal limits. Affect congruent, mood depressed and anxious. Thoughts linear, logical, no signs of hallucinations or delusions. Reviewed client?s symptom tracker, risk for suicidal ideation noted as a 1/5 which is consistent with baseline, denies any plan, or intent as of 04/01/21 Client Response/Progress/Benefit: []Client responded well to session, providing feedback and willing to process with group. Client reports feeling unsure right now?, explaining that he did not want to label his emotion right now and risk setting himself up to have a negative mindset the remainder of the day. Shared struggling with motivation and the desire to engage in activities he knows he will enjoy. Expressed that he has been sleeping and isolating more as he does not have the energy or feel like engaging in other activities. Receptive of supportive feedback and suggestions for improving motivation when depressed. Expressed plans to use opposite action to get outside and clean his garage today as that is often his comfort space. Went on to identify additional stressor as adjusting to being in a ?[id number]? parent role while seeking mental health treatment. Noted this has felt outside his comfort zone as well. Appeared to benefit from group support and normalizing his emotions. Will continue IOP tx to continue to promote self-care, increase consistent use of healthy independent coping skills, as well as continue to improve mood stability. Narrative Note: []
--- NOTE | 2021-04-01 10:13 | BH.SGPN.GN ---
Behaviors/Verbalizations/Mental Status: []Client alert and oriented, casually dressed and groomed. Eye contact good. Motor activity appropriate. Speech within normal limits, however, pt struggling to articulate. Affect constricted, mood dysthymic. No signs of hallucinations or delusions. Thought blocking at times AEB client reporting losing his train of thought a lot. Client Response/Progress/Benefit: []Pt was well engaged in group AEB taking notes, providing input, and listening attentively throughout. Group identified potential barriers to goal setting to include: lack of confidence, lack of resources, fear of success, fear of change, and setting unrealistic expectations. Pt reports he sometimes struggles with not having the right resources to accomplish his goals. Group also worked together to identify benefits to goal-setting which include: improves relationships, increases motivation, personal growth, and improves mental health. Benefited from increased awareness of benefits and barriers to goal-setting. Progress is limited as pt self-reports not applying coping skills outside of IOP. Will continue IOP tx to increase emotional regulation skills, reduce use of unhealthy coping skills, and improve overall functioning. Narrative Note: []
--- NOTE | 2021-04-01 11:10 | BH.SGPN.GN ---
Behaviors/Verbalizations/Mental Status: []Client alert and oriented, casually dressed and groomed. Eye contact fair to good. Motor activity appropriate. Speech within normal limits. Affect constricted, mood anxious and depressed. Thoughts linear, logical, no signs of hallucinations or delusions. Client Response/Progress/Benefit: []Pt was an active participant in group discussions and activities. Engaged in activity. Pt identified a SMART goal for the next week is to: work with counselor to create goals that can help him improve his communication and improve daily functioning.. Pt reported this would benefit her mental health by helping him get better at goal setting and give him more concrete ways to improve his communication. Benefited from group by being able to utilize SMART educate to create a goal. Pt to continue IOP to stabilize mood, increase utilization of healthy coping and self-care, reduce depression, as well as prevent decompensation.
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
--- NOTE | 2021-04-03 10:10 | BH.SGPN.GN ---
Behaviors/Verbalizations/Mental Status: []Client alert and oriented, casually dressed and grooming appears disheveled, reports not bathing. Eye contact fair to good. Motor activity appropriate. Speech within normal limits. Affect congruent, mood depressed and anxious. Thoughts linear, logical, no signs of hallucinations or delusions. Client Response/Progress/Benefit: []Pt engaged participant in group discussion and remained attentive throughout discussion on communication. Participated in discussion into the benefits of effective communication on mental health which included; helps us set healthy boundaries, get needs met, improve overall mental health and quality of life, reduce stress, and make time for self-care. Pt along with peers able to identify ways that communication can be misinterpreted and the potential costs this can have mental health and relationships. Pt continues to struggle in identifying his own communication pitfalls and barriers which is a major barrier reinforcing current relationship discord. Remained engaged and appeared to benefit from discussion on the various communication styles, as well as reviewing the importance of communicating effectively to improve mental wellness. Shared connecting most with passive communication, identifying that this has led to aggression in the past as he often holds things in until reaching his breaking point. Progress noted in increased insight regarding impacts of current communication styles, though continues to struggle with transferring learned skills to his daily life. Will continue IOP tx to continue to improve mood stability and healthy communication skills, promote self-care, as well as prevent decompensation. Narrative Note: []
--- NOTE | 2021-04-03 11:10 | BH.SGPN.GN ---
Behaviors/Verbalizations/Mental Status: []Client alert and oriented, casually dressed and appropriately groomed. Eye contact good. Motor activity appropriate. Speech WNL. Affect constricted, mood dysthymic. Thoughts linear, logical, no signs of hallucinations or delusions. Client Response/Progress/Benefit: []Client responded well to session AEB client listening attentively to others and providing input during group discussion on the pay offs and costs of the different communication styles. Client stated he is most often a passive communicator that can lead to aggressive communication. Client stated his needs don't get met by current style of communication. Attentive during psychoeducation on interpersonal DBT skill NINI and client selected a communication skill to practice. Client selected the skill of mindfulness because it will help him stay on topic and get more accomplished. Client seemed to benefit from increasing awareness of healthy strategies to improve communication. Will continue IOP tx to increase consistent application of skills, challenge distorted thoughts and prevent decompensation. Narrative Note: []
--- NOTE | 2021-04-03 12:03 | PCM.BH.PN_ITS ---
Progress Note Progress Note: History of Present Illness/Interim History: [] The patient is a 36-year-old male with a history of mood disorders, ADHD and substance abuse issues who is seen in follow-up at the [facility] behavioral health IOP program. I last saw the patient about 2 weeks ago and at that time we ordered a Depakote level as he said he had been compliant with his daily Depakote dose for over a week at that time. His Depakote level came back 40 and is a little below therapeutic range. He states that he saw his new psychiatrist in the past few days and his Risperdal was discontinued as he felt he had side effects from it. In addition hydroxyzine was added for his anxiety. Patient states that his mood remains okay overall except that he still tends to be irritable and gets angry at his and then also accompanied by some impulsive behavior when he gets angry. He tries to isolate himself from his still in order to prevent outbursts. He still feels depressed with some hopelessness but not as bad as it was before. He also endorses feeling worthless and having low motivation and low energy level. He denies passive thoughts of , suicidal ideation, plan for suicide or homicidal ideation. He denies hallucinations and delusions. He feels he has made a decision to go back and work on the [employer]s in the near future. He was using marijuana daily and then more recently sporadically. He is now says he plans to quit marijuana use completely. He denies any other drug or alcohol use. Current Psychiatric Medications: [] Depakote ER 1000 mg p.o. nightly. Modafinil 100 mg p.o. every morning; Remeron 15 mg p.o. nightly (started 1 month ago).; Hydroxyzine 25 mg up to 3 times daily as needed for anxiety. Mental Status Examination: [] Patient is a 36-year-old male who appears normal for stated age and is seen wearing a mask due to the pandemic and is casually dr essed and groomed with good hygiene. He has large gauges bilaterally in his ears and a small piercing in his lip. He has no psychomotor agitation or retardation. Eye contact is good and speech is normal rate and rhythm and fluent with no pressure. Mood is depressed. Affect is full and normal. Thought process is goal-directed and organized. Thought content: There is no evidence of passive thoughts of , suicidal ideation, homicidal ideation, hallucinations or delusions. Reality testing is intact. Judgment is improving but limited. Insight is limited but improving. Impulsivity remains moderate to high. Diagnoses: [] 1. Bipolar disorder, NOS 2. Anxiety disorder, NOS 3. Strong cluster B traits 4. 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 5. Epilepsy 6. Primary support, work and financial issues. Plan: [] The patient will continue the IOP program at [facility] as the structure, support, education and group therapy will hopefully prevent worsening of the patient's symptoms which might require hospital sedation. He felt safe during the interview and if it anytime he does not feel safe he will let us know or go to the emergency room. The risks, options, possible complications and side effects of the medications were again discussed with the patient and he understands and accepts these. He agrees to increase his Depakote ER to a total of 1250 mg p.o. daily. He is to take 2-1/2 of the 500 mg tablets. Prescription was sent in for this. I will see the patient in follow- up in 2 weeks and we will check a Depakote level level at that time. He will continue to follow-up with his outpatient psychiatric and medical providers.
--- NOTE | 2021-04-05 09:07 | BH.SGPN.GN ---
Behaviors/Verbalizations/Mental Status: []Eye contact is good. Motor activity is appropriate. Appearance is casual. Speech is Appropriate. Mood is dysthymic and anxious. Affect is constricted. Thoughts are linear and logical. No evidence of psychosis. Reviewed daily check in sheet and no reports of suicidal ideations or intent. Client Response/Progress/Benefit: []Pt responded well to session AEB sharing thoughts and feelings and appearing to listen attentively to peer. Pt stated on his way to IOP this morning he was faced with several stressors and his impulse was to respond aggressively to the stressors. Reported instead he took a breath and used positive self talk to stop himself from acting on impulsive urge. Pt identified additional mental health positive as improved attitude and mood this morning. 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 Pt mood often determined by current situation, struggles with identifying what he can do to improve his situation/mood. Pt to continue IOP to increase personal accountability, increase mood stability and prevent decompensation.
--- NOTE | 2021-04-05 10:08 | BH.SGPN.GN ---
Behaviors/Verbalizations/Mental Status: []Client alert and oriented, casually dressed and groomed. Eye contact good. Motor activity appropriate. Speech within normal limits. Affect congruent, mood depressed. Thoughts linear, logical, no signs of hallucinations or delusions.[] Client Response/Progress/Benefit: []Client engaged during session AEB client contributing to discussion and completing worksheet. Connected with discussion on crisis and how coping with external crises by using unhealthy coping skills could result in a personal crisis. Discussed he at times struggles with having a negative attitude which impedes his ability to effectively cope in times of crisis. Group reflected on the importance of having awareness of personal warning signs in order to prevent reaching crisis point. Client explained that warning signs are ?heads up, that we need to pay attention?. Group identified potential warning signs for crisis and client completed the personal warning signs worksheet. Client identified personal crisis warning signs to include: drop in functioning and productivity, cry more frequently, nihilistic attitude, isolation/loss of interest, and not watching [employer] videos. Client benefited by increasing awareness of what leads to crisis and personal warning signs. Client will continue IOP to continue to promote use of healthy skills, continue to improve communication with supports and self-care, as well as prevent decompensation. Narrative Note: []
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
--- NOTE | 2021-04-08 10:15 | BH.SGPN.GN ---
Behaviors/Verbalizations/Mental Status: []Client alert and oriented, neatly dressed and groomed. Eye contact good. Motor activity appropriate. Speech within normal limits. Affect congruent, mood dysthymic. Thoughts linear, logical, no signs of hallucinations or delusions. Client Response/Progress/Benefit: []Client responded well to session, attentive and participating in discussion. Participated in discussion of things that can keep people feeling trapped or stuck in life including: avoidance, decreased confidence, give up easily and not try. Group discussed the connection between thoughts, emotions, and behaviors as well as how negative thinking can keep a person stuck. Client attentive during psychoeducation on maintenance cycles. Client able to identify negative thoughts that have kept client stuck which included I'll never be well adjusted. I'm better off alone. I'm not good enough. Appeared to benefit from gaining awareness of how negative thoughts reinforce mental health symptoms and keep people stuck. Will continue IOP tx to increase utilization of healthy coping, challenge negative thoughts and prevent decompensation.
--- NOTE | 2021-04-08 11:15 | BH.SGPN.GN ---
Behaviors/Verbalizations/Mental Status: []Client alert and oriented, disheveled appearance. Eye contact good. Motor activity appropriate. Speech within normal limits. Affect constricted, mood dysthymic. Thoughts linear, logical, no signs of hallucinations or delusions. Client Response/Progress/Benefit: []Client engaged during activity and discussion. Client worked in small group to apply skills learned to reframe own personal fixed thoughts. Appeared to benefit from suggestions provided by peers and from providing ideas to peers in return. Client identified several fixed thoughts including ?I?ll never be well adjusted,? ?I?m not good enough? and ?my skills aren?t good enough.? Client practiced reframing these fixed thoughts using growth-mindset strategies. Reframed one of his thoughts and shared ?I?m an asset and eventually I?ll get it right.? Benefitted from discussing benefits of growth mindset and brainstorming strategies for prompting growth-mindset. Will continue IOP tx to increase impulse control and increase application of healthy emotional regulation skills. Narrative Note: []
--- NOTE | 2021-04-09 09:05 | BH.SGPN.GN ---
Behaviors/Verbalizations/Mental Status: []Client alert and oriented, casually dressed and groomed. Eye contact good. Motor activity appropriate. Speech within normal limits. Affect flat, mood depressed. Thoughts linear, logical, no signs of hallucinations or delusions. Reviewed client?s symptom tracker, no risk for suicidal ideation, plan, or intent as of 04/09/22 Client Response/Progress/Benefit: []Client responded well to session, attentive and contributing. Client reports feeling indifferent this morning as client continues to report ongoing family and marital stressors. Client stated he has been using self-care more regularly, but he still has to force himself to do daily hygiene. Client shared he practiced mindfulness as well by cleaning without interruptions, but client reported this also made him feel guilty because I should be spending time with family. Therapist attempted to help client challenge his perspective, but client shared he is struggling to see the positives today. Appeared to benefit from connecting with peers. 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 Will continue IOP tx to prevent decompensation and improve daily functioning. Narrative Note: []
--- NOTE | 2021-04-09 10:25 | BH.SGPN.GN ---
Behaviors/Verbalizations/Mental Status: [] Client Response/Progress/Benefit: [] Pt was an active participant in interactive group discussion and experiential activity. Attentive and provided insight and feedback during psychoeducation on the role and types of supports. Group members were able to identify types of healthy support which included; family, friends, medications, pets, professionals, and healthy hobbies. Also able to identify the difference between healthy and unhealthy support. Listed that healthy support is; non-judgemental, understanding, challenges us, can keep us in check, motivates us, and gives us space when needed. Obstacles that were identified to keep one from seeking or utilizing support included; cognitive distortions, pride, lack of awareness, fear of other's reactions. During experiential activity pt was able to relate and make connections between psychoeducation and the activity. Benefited from increased insight into the benefits of having a balanced support system. Will continue in IOP to maintain safety, prevent decompensation, and stablize mood. Narrative Note: []
--- NOTE | 2021-04-10 12:57 | BH.MTP_ITS ---
Treatment Plan Review Date of Admission:: 03/14/21 Date of Treatment Plan Review:: 04/10/21 Admitting Diagnoses:: F31.9 Bipolar disorder, NOS. Anxiety disorder, NOS. 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 Strong cluster B traits Current Diagnoses:: F31.9 Bipolar disorder, NOS. Anxiety disorder, NOS. 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 Strong cluster B traits Patient's Response to Treatment:: Pt has struggled with tardiness at times but overall consistently attends IOP sessions has signed up for. Pt often provides feedback and ideas to group sessions. Struggles with utilization of skills in everyday life. Status of Current Problems and Symptoms: Ongoing problems. Pt's marriage continues to be significant source of stress. Pt often attributes problems and symptom to things that are outside his control and struggles to identify what he can do to improve his situation. Pt has shown progress with decreased intense anger outbursts and hasn't been to the emergency room for mental health problems in last 4 weeks. Prior to admission pt had been to the ER for suicidal ideation three different times in a two month time period. Per pt's DSM 5 scores at mid- point his overall symptoms have decreased by 1 point compared to admission scores. Problem #1 Problem Name:: mood instability Status of Goals:: obj 1. partially met ongoing work encouraged. Pt is able to identify healthy coping skills like opposite action, engaging in self-care, and doing activities that he enjoys. At times he struggles with consistently using skills. Pt's focus on waiting for an external situation to improve his mood has been barrier to this goal. Per DSM 5 score pt's depression has decreased by 17%. obj 2 - not met. Pt has learned several conflict resolution skills through group and individual. Pt's anxiety seems to prevent pt from using the skills learned. Pt predicts using the conflict resolution skills will cause more arguing with his . Pt continues to use avoidance of conflict as main skill. Pt recognizes this will not improve his relationship or improve his mood. Team Recommendations:: Team recommends continue current goal and objective. Continued use of motivational interviewing techniques to help pt realize importance of changing the way he manages conflict. Help pt identify what he can do to improve his mood and situation. Problem #2 Problem Name:: anxiety Status of Goals:: obj 1 - partially met. Pt is able to identify calming skills like belly breathing, grounding and engaging his 5 senses. Pt struggles with using this skills outside treatment environment. obj 2 - not met. Per pt's DSM 5 score his anxiety has increased by 33%. Team Recommendations:: Team recommends continue current goal and objective. Continue to review healthy calming skills and help pt identify how to increase follow through of practicing skills everyday.
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
--- NOTE | 2021-04-11 11:15 | BH.SGPN.GN ---
Behaviors/Verbalizations/Mental Status: []Client alert and oriented, casually dressed and groomed. Eye contact good. Motor activity appropriate. Speech within normal limits. Affect incongruent-client often uses humor to deflect, mood depressed. Thoughts linear, logical, no signs of hallucinations or delusions. Client Response/Progress/Benefit: []Client engaged participant AEB client taking notes and providing input during discussion. Attentive throughout group discussion on the various areas of self-care and made connections during the activity. Client completed worksheet which identified current self-care practices and what self-care activities client wants to start using. Client selected physical self-care as the area of self-care client would like to improve. Client plans to do this by eating healthier and getting more exercise. Appeared to benefit from completing the self-care evaluation and gaining insights into current self-care practices, as well as identifying areas in which she would like to improve upon. Will continue IOP tx to increase application of healthy coping skills, improve emotional regulation skills, and prevent decompensation. Narrative Note: []
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
--- NOTE | 2021-04-22 09:05 | BH.SGPN.GN ---
Behaviors/Verbalizations/Mental Status: []Client alert and oriented, casually dressed and groomed. Eye contact fair. Motor activity appropriate. Speech within normal limits. Affect constricted, mood anxious and euthymic. Thoughts linear, logical, no signs of hallucinations or delusions. Reviewed client?s symptom tracker, no risk for suicidal ideation, plan, or intent as of 04/22/21 Client Response/Progress/Benefit: []Client responded well to session, attentive and contributing. Client reports feeling reluctantly optimistic this morning. 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 Client stated I was waiting for the holidays to go poorly and they didn't. Client stated he got to see live music over the weekend which was like therapy to client. 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 Client reports feeling torn because there are benefits, but it also means being away from his daughter most of the month. Briefly discussed the mental health benefits of returning to this work and client reports it will allow him to regulate his emotions better which would help client be a better father. Progress noted in client's report of increased self-awareness. Will continue IOP tx to increase emotional regulation skills, reduce anger, and improve daily functioning. Narrative Note: []
--- NOTE | 2021-04-22 10:16 | BH.SGPN.GN ---
Behaviors/Verbalizations/Mental Status: []Eye contact is good. Motor activity is appropriate. Appearance is casual and grooming tended to. Speech is Appropriate. Mood is dysthymic, though often using sarcasm to deflect. Affect is congruent. Thoughts are linear and logical. No evidence of psychosis Client Response/Progress/Benefit: []Pt was an engaged participant in group discussion, providing input and was attentive during psychoeducation. Participated in short activity about automatic thoughts and shared that mood and past experiences can impact automatic thoughts. Group was primarily educational; therapist introduced and gave examples of the most common cognitive distortions. Pt benefited from education and increased awareness of cognitive distortions and the role that they play our behaviors and emotions. Pt reported connecting with many distortions reviewed, providing several examples throughout. Shared distortions he currently struggles with as mental filter and disqualifying the positives, noting that he often assumes the worst of a situation. Will continue IOP tx to challenge distortions that reinforce depression, improve mood stability, and continue to promote healthy change behaviors. Narrative Note: []
--- NOTE | 2021-04-22 14:44 | BH.MDN_ITS ---
Multi-Disciplinary Note - Note 45-min Individual Time Started:: 11:20 Date: 04/22/21 Purpose of session/treatment goals addressed:: Purpose of session was to address goals 1 and 2 from master treatment plan. Eye Contact:: Fair Motor Activity:: Appropriate Appearance:: Casual Speech:: Appropriate Mood:: Dysthymic Affect:: Constricted Thoughts:: Linear, Logical, No evidence of hallucinations/delusions noted Staff Interventions:: thought challenging, motivational interviewing, CBT techniques, discharge planning, goal setting Client Response:: Pt stated his holiday went surprisingly well. Pt reported his son that has autism hasn't had any violent outbursts in the last 1-2 weeks which has significantly improved pt's mood. Pt stated he has been trying to approach his son differently which has paid off. Pt reported he also hasn't been arguing with his in the last week. Pt stated mood was improved throughout week. Pt reported he did have significant anxiety yesterday which he attributes to being overstimulated with the holidays and being around a lot of people. Pt stated he still struggles with being in a room with more than 5 people. Pt reported he usually uses his phone as a way to escape when anxious. Pt reported he did not see this as a problem, despite his being upset that he often is not present with the family. Pt stated he is doing the best he can. Pt reported his plan is to finish IOP next week then by the end of April return to work on the [employer]. Pt stated he doesn't like being away from his kids 3 weeks every month but knows he needs to do it to help get his family out of debt. Pt reported in the last two weeks of IOP he wants to focus on improving his communication when in conflict with his . Pt reported he will plan to follow up with outpatient counseling after completing IOP. Pt requested additional counseling options because he is unsure he wants to return to his current outpatient counselor. Risks/Concerns:: denies suicidal ideation, plan or intention to date. Progress Toward Goals/Plan:: Progress noted with pt's improved emotional regulation, sobriety from meth, and hasn't been to ER for psychiatric reasons in over 4 weeks. Pt continues to struggle with anxious symptoms, communication and using healthy skills. Pt's mood often dependent on external situation. Pt often not open to trying new healthy skills taught from individual and group counseling. Pt several times has mentioned waiting for something external to happen that will improve his mood. Pt to continue IOP to improve communication, continue to work on emotion regulation and prevent decompensation. Time Stopped:: 12:00
--- NOTE | 2021-04-23 09:05 | BH.SGPN.GN ---
Behaviors/Verbalizations/Mental Status: []Eye contact is fair to good. Motor activity is appropriate. Appearance is casual. Speech is Appropriate. Mood is depressed. Affect is constricted. Thoughts are linear and logical. No evidence of psychosis. Reviewed daily check in sheet and no reports of suicidal ideations or intent. Client Response/Progress/Benefit: []Pt responded well to session AEB listening attentively to peers and sharing thoughts with group. Reported her current emotion is ?ambivalent? as he continues to struggle with significant depression related to his current home life and ongoing marital discord. Did well however to identify several areas of progress over the past few days. This included making more of an effort to complete daily hygiene routine, trying not to let small unavoidable stressors negatively impact his mood, making time to listen to music he finds enjoyable. Reports the group environment continues to provide a healthy change in environment and prevents him from isolating for the majority of the day. Appeared to benefit from supportive group environment. Progress continues to remain limited as pt homelife is the primary source of his stress and pt is unwilling to make any substantial changes in this area at this time. Pt to continue IOP to continue to promote healthy skill application, encourage self-care practices, and prevent further decompensation. Narrative Note: []
--- NOTE | 2021-04-23 10:10 | BH.SGPN.GN ---
Behaviors/Verbalizations/Mental Status: []Client alert and oriented, casually dressed and groomed. Eye contact good. Motor activity appropriate. Speech within normal limits. Affect congruent, mood dysthymic. Thoughts linear, logical, no signs of hallucinations or delusions. Client Response/Progress/Benefit: []Client responded well to session, attentive and providing input throughout. Participated in discussion of things that can keep people feeling trapped or stuck in life including: avoidance, unhealthy coping, isolation, self-harm, and surrounding self with toxic people. Group discussed the connection between thoughts, emotions, and behaviors as well as how negative thinking can keep a person stuck. Client attentive during psychoeducation on maintenance cycles. Client able to identify negative thoughts that have kept client stuck which included I'm incapable of change. Any change isn't enough Ruining my family I should just leave. Appeared to benefit from gaining awareness of how negative thoughts reinforce mental health symptoms and keep people stuck. Will continue IOP tx to prevent decompensation, increase consistent application of skills and continue to work on improving emotional regulation.
--- NOTE | 2021-04-23 11:10 | BH.SGPN.GN ---
Behaviors/Verbalizations/Mental Status: []Client alert and oriented, casually dressed and groomed. Eye contact good. Motor activity appropriate. Speech within normal limits. Affect constricted, mood dysthymic. Thoughts linear, logical, no signs of hallucinations or delusions. Client Response/Progress/Benefit: []Client responded well to session, contributing to discussion and completed worksheet. Client identified a negative thought that has kept client stuck. Client's thought was I?m incapable of change.? Client reported when client thinks this way, client does not finish projects, shuts down, and gives minimal effort. Client worked to reframe the thought by finding more rational, realistic ways to look at the thought and then processed within group setting. Client reframed the thought to ?I am capable of change? and client listed all the changes he has made within the last few months. Client stated looking at the areas he has made changes will keep client moving forward. Client appeared to benefit from practicing challenging negative thinking. Client will continue IOP tx to reinforce healthy coping skills and promote mood stability. Narrative Note: []
--- NOTE | 2021-04-24 09:05 | BH.SGPN.GN ---
Behaviors/Verbalizations/Mental Status: []Client alert and oriented, casually dressed and groomed. Eye contact fair. Motor activity appropriate. Speech within normal limits-sarcastic. Affect flat, mood dysthymic. Thoughts linear, logical, no signs of hallucinations or delusions. Reviewed client?s symptom tracker, no risk for suicidal ideation, plan, or intent as of 04/24/21 Client Response/Progress/Benefit: []Client responded well to session, sharing when it was his turn. Client reports feeling capricious this morning as client feels like his mood could change from minute to minute. Client reports his mental health win is that he cleaned last night, but this was also a stressor because it meant he was not present around his family. Client is also feeling torn about getting a job in the [employer] field as this means being away form his children. Group attempted to help client reframe any negative thinking and client shared it is what it is. Client's progress continues to be limited as client's problems and home stressors are ongoing. Will continue IOP tx to prevent decompensation and reduce use of unhealthy coping skills. Narrative Note: []
--- NOTE | 2021-04-24 10:10 | BH.SGPN.GN ---
Behaviors/Verbalizations/Mental Status: [] Eye contact is good. Motor activity is appropriate. Appearance is casual. Speech is Appropriate. Mood is euthymic. Affect is full. Thoughts are linear and logical. No evidence of psychosis. Client Response/Progress/Benefit: [] Pt was an active participant in group discussion. Attentive during psychoeducation. Pt provided insight and was engaged during interactive discussion on the definition of anxiety, what distinguishes normal anxiety vs anxiety disorder, and the benefits of anxiety. Also participated in discussion on the physiological symptoms, fearful thoughts, and safety behaviors related to anxiety. Pt was able to identify the 3 most significant physiological symptoms of anxiety that he experiences which included; crack my hands, restlessness, flushed, sweaty. Benefited from psychoeducation on anxiety as well as personal physiological signs of anxiety. Will continue in IOP to prevent decompensation, improve functioning to return to work, develop healthy coping skills. Narrative Note: []
--- NOTE | 2021-04-25 11:10 | BH.SGPN.GN ---
Behaviors/Verbalizations/Mental Status: []Client alert and oriented, casually dressed and groomed. Eye contact good. Motor activity appropriate. Speech within normal limits. Affect congruent, mood anxious. Thoughts linear, logical, no signs of hallucinations or delusions. Client Response/Progress/Benefit: []Client able to provide input to discussion when prompted, appeared to listen attentively to peers. Reviewed safety behaviors he engages in that reinforce anxiety. Client stated his safety behaviors are smoking cigarettes and isolation. Attentive during psychoeducation on mindfulness coping skills and their impact on mental health wellness. The group worked together to brainstorm anxiety reduction strategies. Client reported he will practice breathing skills and exercise as ways to help manage his anxious symptoms. Client seemed to benefit from increased repertoire of anxiety reduction skills. Client will continue IOP tx to increase consistent application of skills, challenge negative thoughts and prevent decompensation.
== END 2021-04-26 23:59 ==
LOC: BHIOP 09:00
PROVIDERS: PCP Family Medicine; Referring Provider Psychiatry & Neurology Psychiatry; Visit Provider Psychiatry & Neurology Psychiatry
DX: F31.9 Bipolar disorder, unspecified (principal); F41.9 Anxiety disorder, unspecified; F19.90 Other psychoactive substance use, unspecified, uncomplicated; F15.90 Other stimulant use, unspecified, uncomplicated; F14.90 Cocaine use, unspecified, uncomplicated
CPT/HCPCS: 99213; H2012; H2020; S9480; 90832; 90834

== ENCOUNTER 2021-04-29 09:00 | Outpatient (RCR) | payer OTHER, MEDICAID, SELFPAY ==
[2021-04-27 00:36] VITALS: BP 151/95; PULSE 86
--- NOTE | 2021-04-30 09:05 | BH.SGPN.GN ---
Behaviors/Verbalizations/Mental Status: [] Eye contact is good. Motor activity is appropriate. Appearance is casual. Speech is Appropriate. Mood is euthymic. Affect is full. Thoughts are linear and logical. No evidence of psychosis. Reviewed daily check in sheet and no reports of suicidal ideations or intent. Client Response/Progress/Benefit: [] Pt was an active participant in group discussion. Attentive. Provided appropriate feedback. This was pt's first virtual group and we discussed reasons for switching to virtual this week with plan to resume in person next week. Emotion for today is chill. States I'm stressed out on several different planes and it's hard to stay optimistic. Overall he reports improved communication and decreased conflict with support, however was quick to point out why he does not believe this will last. Group did challenge this cognitive distortion. He talked about his currently mental health, improvements while in IOP, and his future. He is planning to return to a job which requires him to be out of state throughout the month. He believes that his job will provide a financial cushion for his family and relieve stress and conflict at home. He reports decreased conflict and behavioral issues from his older son, however he attributes this to certain external events. Progress noted per pt report. Benefited from group support, encouragement, and feedback. Will continue in IOP to maintain safety, prevent decompensation, and stabilize mood. Narrative Note: [] This psychotherapy group was provided via telehealth using two-way, real-time interactive telecommunication technology between the patients and the provider. The interactive telecommunication technology included audio and video. The patient was offered telemedicine as an option for care delivery during the COVID-19 pandemic and consented to this option. Patient location: [place] Provider located at [facility]
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
--- NOTE | 2021-05-01 10:00 | BH.SGPN.GN ---
This psychotherapy group was provided via telehealth using two-way, real-time interactive telecommunication technology between the patients and the provider. The interactive telecommunication technology included audio and video. The patient was offered telemedicine as an option for care delivery during the COVID-19 pandemic and consented to this option. Patient location: [place] Provider located at [facility] Behaviors/Verbalizations/Mental Status: []Client alert and oriented, casual appearance. Eye contact fair to good. Motor activity WNL. Speech within normal limits. Affect congruent, mood depressed. Thoughts linear, logical, no signs of hallucinations or delusions. Client Response/Progress/Benefit: [] Client engaged in session AEB taking notes and contributing to discussion, as well as providing examples throughout. Client assisted group with identifying benefits of setting boundaries such as improve self-esteem, help get needs met, feel more empowered, and better relationships. Listened during psychoeducation on different types of boundaries. Client identified personally struggling with boundaries in almost all areas discussed, noting that he often responds based on emotion rather than giving himself time to appropriately process. Shared he has however been doing well to improve his understanding of what healthy boundaries entail. Seemed to benefit from increased awareness of how boundaries impact mental health and the different types of boundaries there are. Client progress noted in self-reports of improved willingness to work on self-care and reduced impulsivity; however, continues to struggle with significant mood instability. Will continue IOP tx to prevent decompensation, increase depression and anxiety management skills, and further improve self-care. Narrative Note: []
--- NOTE | 2021-05-01 11:05 | BH.SGPN.GN ---
This psychotherapy group was provided via telehealth using two-way, real-time interactive telecommunication technology between the patients and the provider. The interactive telecommunication technology included audio and video. The patient was offered telemedicine as an option for care delivery during the COVID-19 pandemic and consented to this option. Patient location: [place] Provider located at [facility] Behaviors/Verbalizations/Mental Status: [] Client alert and oriented, casually dressed and appropriately groomed. Eye contact fair to good. Motor activity appropriate. Speech within normal limits, providing less input than prior session. Affect congruent, mood depressed. Thoughts linear and intact. no signs of delusions or hallucinations. Client Response/Progress/Benefit: []Client responded well to session AEB listening attentively to peers and providing input throughout. Client was attentive and contributed during psychoeducation on the different boundary styles. Client stated he tends to struggle with having really rigid boundaries with his but is then porous when it comes to meeting new people. Client recognizes that this his rigid boundaries with his with have further complicated their relationship and often creates additional tension in the home. Participated in group discussion brainstorming various strategies for improving healthy personal boundaries. Client identified wanting to work on improving communication. Progress noted in improved use of self-care this week vs. last week. Will continue IOP tx to continue challenging negative thoughts, promote self-care and use of emotion regulation skills, and prevent decompensation. Narrative Note: []
--- NOTE | 2021-05-01 11:32 | BH.MDN ---
Multi-Disciplinary Note - Note 30-min Individual Time Started:: 10:00 Date: 05/01/21 Purpose of session/treatment goals addressed:: Risk Assessment. Pt's daily symptom tracker in first group noted 2/5 for suicidal thoughts and 0/5 for intent. Eye Contact:: Good Motor Activity:: Appropriate Appearance:: Casual Speech:: Appropriate Mood:: Irritable, Depressed Affect:: Full Thoughts:: Linear, Logical, No evidence of hallucinations/delusions noted Staff Interventions:: discharge planning, completed risk assessment / safety planning Client Response:: Pt shared that he had an argument with his last evening which did not go well. Notes frequent conflict with . He shared that he is frustrated that his refuses to seek marital counseling and does not believe the marriage will improve. It is what it is. Several stressors in the house and patient is planning to begin working out of state soon which is another area of conflict. Prior to starting IOP an argument led to patient leaving the house and verbalizing SI which eventually led to psychiatric admission. Pt currently denies any suicidal ideations, plan, or intent. He states that even prior to his psych admission he was not truly suicidal and just needed admitted to get help. I was never suicidal I just needed help. Reports passive thoughts of to a small degree however those thoughts are trivial at best. Reports more frustration with his current finances, marriage, and other stressors. He is future-oriented (job) and contracts for safety. He stated that he was never suicidal last night. Believes that his PRN medication has helped with mood management (anxiety, stress, anger). Attempted to discuss conflict resolutions skills for continued interaction with his however he believes the best course of action is to ignore the events and not cause more conflict. His talked briefly with him this AM regarding other issues prior to her leaving for work and feels that she will mostly likely ignore this as well. Risks/Concerns:: Refer above. Denies SI, plan, or intent. Future-oriented. Does not present as imminent danger to self due to no active SI, plan, or intent. Progress Toward Goals/Plan:: Pt has made progress in IOP. 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 Reports increased stability. Believes that his medication are helpful. Primary stressor continues to be marriage conflict, financial issues, and other home stressors. Pt is agreeable with marriage counseling however reports that his is not. Has been consistent and engaged in IOP and reports benefits. His plan is to discharge tomorrow . We discussed aftercare plan as he primary therapist is off this week due to COVD. Already has psychiatric and counseling services through the counseling center however wants to pursue a new therapist. Current therapist does not have much availability. Emailed him referral options to call this afternoon. This counseling session was provided via telehealth using two-way, real-time interactive telecommunication technology between the patient and the clinician. The interactive telecommunication technology included audio and video. The patient was offered telehealth as an option for care delivery during the COVID-19 pandemic and consented to this option. Patient location: [place]. Provider located at [facility] Time Stopped:: 10:30
--- NOTE | 2021-05-02 09:00 | BH.SGPN.GN ---
Behaviors/Verbalizations/Mental Status: [] Eye contact is good. Motor activity is appropriate. Appearance is casual. Speech is Appropriate. Mood is euthymic. Affect is full. Thoughts are linear and logical. No evidence of psychosis. Reviewed daily check in sheet and no reports of suicidal ideations or intent. Client Response/Progress/Benefit: [] Pt was an active participant. Attentive. Had a group discussion on gaslighting in mental health. States that he has no stressors today. Reports that conflict with yesterday was simply ignored yesterday which I'm OK with. Talked about his anxiety about returning to work. Mental Health wins include utilizing self-care yesterday and today which has improved his mood and thoughts. Shared with the group that today will be his last day in IOP. Believes that he has made progress. Discussed how his emotional intelligence has improved as well as his individual coping skills. He empathized that he enjoyed to intensity of IOP such as coming in 3 days a week and how this benefited his mental health. Resonated with a majority of the groups which improved his insight and awareness of himself and his mental health. Emotion for today is hesitant and optimistic. Progress noted per pt report. Plan is to discharge from IOP today. Narrative Note: [] This psychotherapy group was provided via telehealth using two-way, real-time interactive telecommunication technology between the patients and the provider. The interactive telecommunication technology included audio and video. The patient was offered telemedicine as an option for care delivery during the COVID-19 pandemic and consented to this option. Patient location: [place] Provider located at [facility]
--- NOTE | 2021-05-02 10:19 | BH.MDN ---
Multi-Disciplinary Note - Note 30-min Individual Time Started:: 10:15 Date: 05/02/20 Purpose of session/treatment goals addressed:: The purpose of this session was to review client's progress and review strategies that will promote mood stability and gains made in IOP. Another goal was to discuss discharge recommendations and process any current stressors. Symptoms/Behavior:: This counseling session was provided via telehealth using two-way, real-time interactive telecommunication technology between the client and the clinician. The interactive telecommunication technology included audio and video. The client was offered telehealth as an option for care delivery during the COVID-19 pandemic and consented to this option. Client location: [place]. Provider located at [facility] Eye Contact:: Good Motor Activity:: Appropriate Appearance:: Casual Speech:: Appropriate Mood:: Dysthymic Affect:: Constricted Thoughts:: Linear, Logical, No evidence of hallucinations/delusions noted Staff Interventions:: discharge planning, reviewed DSM-5, other - reviewed coping skills and aftercare plan. Client Response:: Client responded well to session, open to meeting with therapist. Client's usual IOP therapist is out sick. Client's last day of IOP tx today and client reports feeling ready to discharge from [facility] and continue with outpatient counseling. Client is established at [facility], but he was hoping to get a new therapist. IOP director emailed client a list of resources and client is encouraged to call and schedule an appointment. Client plans to return to work the end of April or beginning of May per his report. Client would like a telehealth therapist because he will be away for work most of the month. Client self-identified progress while in IOP as my threshold for conflict and anxiety is improving which has helped client regulate emotions better during distress. Client reports he has also been using figure-eight breathing and taking breaks when he needs them. Client continues to report ongoing martial problems with his and he reports he is not sure the marriage can be improved. Risks/Concerns:: Client denies any suicidal ideations, plan, or intent as of 05/02/21. Future oriented. Progress Toward Goals/Plan:: Client has made progress in IOP AEB sobriety from meth since starting IOP and reduced use of marijuana. Additionally, client?s ER visits for mental health reasons have decreased since starting IOP. Client reports progress in increased emotional intelligence and improving frustration tolerance. Client has an appoint with his psychiatrist at [facility] on 05/27/21. Client will discharge from [facility] tx today and continue with outpatient counseling and psychiatry. Time Stopped:: 10:33
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
== END 2021-05-02 12:11 | disposition home or self-care (01) ==
LOC: BHIOP 09:00
PROVIDERS: PCP Family Medicine; Referring Provider Psychiatry & Neurology Psychiatry; Visit Provider Psychiatry & Neurology Psychiatry
DX: F31.9 Bipolar disorder, unspecified (principal); F14.99 Cocaine use, unspecified with unspecified cocaine-induced disorder; F15.99 Other stimulant use, unspecified with unspecified stimulant-induced disorder; F41.9 Anxiety disorder, unspecified
CPT/HCPCS: H2012; H2020; S9480; 90832

== ENCOUNTER 2021-05-22 11:01 | Outpatient (CLI) | payer OTHER, MEDICAID, SELFPAY ==
[2021-05-22 11:58] LABS: Amphetamine Urine VISTA NEGATIVE (<1000 ng/mL); Barbiturate Urine VISTA NEGATIVE (< 200 ng/mL); Benzodiazepine Urine VISTA NEGATIVE (< 200 ng/mL); Cocaine Urine VISTA NEGATIVE (< 300 ng/mL); Ecstacy Urine VISTA NEGATIVE (< 500 ng/mL); Methadone Urine VISTA NEGATIVE (< 300 ng/mL); PCP Urine VISTA NEGATIVE (< 25 ng/mL); THC Urine VISTA NEGATIVE (< 50 ng/mL); Vista UDS pH Range 6
== END 2021-05-22 23:59 | disposition short-term general hospital (02) ==
LOC: LAB 11:05
PROVIDERS: PCP Family Medicine; Visit Provider Internal Medicine Pulmonary Disease
DX: G47.419 Narcolepsy without cataplexy (principal); Z51.81 Encounter for therapeutic drug level monitoring; Z79.899 Other long term (current) drug therapy
CPT/HCPCS: 80307

== ENCOUNTER 2021-06-06 15:50 | Outpatient (CLI) | payer OTHER, MEDICAID, SELFPAY ==
[2021-06-06 17:19] LABS: Amphetamine Urine VISTA NEGATIVE (<1000 ng/mL); Barbiturate Urine VISTA NEGATIVE (< 200 ng/mL); Benzodiazepine Urine VISTA NEGATIVE (< 200 ng/mL); Cocaine Urine VISTA NEGATIVE (< 300 ng/mL); Ecstacy Urine VISTA NEGATIVE (< 500 ng/mL); Methadone Urine VISTA NEGATIVE (< 300 ng/mL); PCP Urine VISTA NEGATIVE (< 25 ng/mL); THC Urine VISTA NEGATIVE (< 50 ng/mL); Vista UDS pH Range 5
== END 2021-06-06 23:59 | disposition home or self-care (01) ==
LOC: LAB 15:52
PROVIDERS: PCP Family Medicine; Visit Provider Internal Medicine Pulmonary Disease
DX: G47.419 Narcolepsy without cataplexy (principal); F90.2 Attention-deficit hyperactivity disorder, combined type
CPT/HCPCS: 80307

== ENCOUNTER → 2021-11-15 | Outpatient (CLI) | payer OTHER, MEDICAID, SELFPAY ==
[2021-11-15 14:21] LABS: Amphetamine Urine VISTA NEGATIVE (<1000 ng/mL); Barbiturate Urine VISTA NEGATIVE (< 200 ng/mL); Benzodiazepine Urine VISTA NEGATIVE (< 200 ng/mL); Cocaine Urine VISTA NEGATIVE (< 300 ng/mL); Ecstacy Urine VISTA NEGATIVE (< 500 ng/mL); Methadone Urine VISTA NEGATIVE (< 300 ng/mL); PCP Urine VISTA NEGATIVE (< 25 ng/mL); THC Urine VISTA NEGATIVE (< 50 ng/mL); Vista UDS pH Range 6
== END | disposition home or self-care (01) ==
PROVIDERS: PCP Family Medicine; Referring Provider Internal Medicine Pulmonary Disease; Visit Provider Internal Medicine Pulmonary Disease
DX: G47.419 Narcolepsy without cataplexy (principal); Z79.899 Other long term (current) drug therapy
CPT/HCPCS: 80307

== ENCOUNTER → 2021-12-16 | Outpatient (CLI) | payer OTHER, MEDICAID, SELFPAY ==
[2021-12-16 16:03] LABS: Amphetamine Urine VISTA NEGATIVE (<1000 ng/mL); Barbiturate Urine VISTA NEGATIVE (< 200 ng/mL); Benzodiazepine Urine VISTA NEGATIVE (< 200 ng/mL); Cocaine Urine VISTA NEGATIVE (< 300 ng/mL); Ecstacy Urine VISTA NEGATIVE (< 500 ng/mL); Methadone Urine VISTA NEGATIVE (< 300 ng/mL); PCP Urine VISTA NEGATIVE (< 25 ng/mL); THC Urine VISTA NEGATIVE (< 50 ng/mL); Vista UDS pH Range 5
== END | disposition home or self-care (01) ==
LOC: LAB 15:05
PROVIDERS: PCP Family Medicine; Referring Provider Internal Medicine Pulmonary Disease; Visit Provider Internal Medicine Pulmonary Disease
DX: G47.419 Narcolepsy without cataplexy (principal)
CPT/HCPCS: 80307